=== PATIENT | male | born 1935 | race Caucasian/White ===

== ENCOUNTER 2018-04-30 01:06 | Observation (INO) ==
--- NOTE | 2018-04-30 01:36 | Emergency Department Note ---
Disposition Clinical Impression: Depression Qualifiers: Depression Type: other depression Qualified Code(s): F32.89 - Other specified depressive episodes Disposition: Still a Patient Condition: Good Time of Disposition: 04:50 Psych HPI - General Chief Complaint: ED Psychiatric Symptoms Stated Complaint: depression Time Seen by Provider: 04/30/18 01:25 Source: patient Nursing Notes Reviewed: Yes Vital Signs Reviewed: Yes - History of Present Illness HPI Narrative: Mr. Pink, 82-year-old male, presents from home with daughter bedside for evaluation of depression. Patient has remote history of depression for which she was suicidal at that time. At this time, he denies suicidal or homicidal ideation. He is concerned he is having that direction but is not yet there. He describes his symptoms as several week history of decreased appetite, sadness , poor tasting food. This is been notably worse last 3 days. He lives at home by himself with his daughter next door. He spent the last several days at her house so we can watch him. He otherwise has no concerns or complaints. PMH: Diabetes mellitus type 2, hyperlipidemia, hypothyroid. ROS: Positive: As above Negative: Fever, chills, nausea, vomiting, chest pain, palpitations, abdominal pain, headache, numbness, tingling, weakness - Related Data Home Medications Medication Instructions Recorded Confirmed Aspirin [Lo-Dose Aspirin EC] 81 mg PO DAILY 02/15/17 04/30/18 Levothyroxine [Synthroid] 25 mcg PO DAILY 02/15/17 04/30/18 Metformin HCl [Fortamet] 1,000 mg PO BID 02/15/17 04/30/18 Simvastatin 20 mg PO DAILY 02/15/17 04/30/18 SitaGLIPtin [Januvia] 50 PO DAILY MDD 50 02/15/17 Lisinopril/Hydrochlorothiazide 1 each PO DAILY 04/30/18 04/30/18 [Zestoretic 10-12.5 mg Tablet] Allergies Allergy/AdvReac Type Severity Reaction Status Date / Time Penicillins [PCN] Allergy Rash Verified 02/15/17 10:59 All systems ED: reviewed and negative except as stated. Review of Systems: As Per HPI Past Medical History - Past Medical History Medical history: Reports: cancer, diabetes, hyperlipidemia, hypertension, renal disease, thyroid disease, other Psychiatric history: Reports: depression - Social History Smoking Status: Unknown if ever smoked Smokeless Tobacco Status: No Alcohol use: Reports: none, unknown Drug use: Reports: none Physical Exam Vital Signs Reviewed General: Patient is alert, oriented, and in no acute distress. Head: atraumatic, normocephalic Eye: normal appearance, no scleral icterus, no conjunctival injection ENT: mucous membranes moist, normal external ear exam Neck: normal inspection, trachea midline, full ROM Chest: normal inspection, symmetric chest rise Respiratory: Good respiratory effort. Bilateral breath sounds are clear without wheezing, crackles, or rhonchi. Cardiovascular: Regular rate and rhythm. No clicks, rubs, gallops, or murmors. Normal heart sounds. Abdomen: Bowel sounds present normoactive x-4 quadrants. Abdomen is soft, nondistended, and nontender. No guarding or rebound. No organomegaly noted. Musculoskeletal: Spontaneously moving all extremities. Skin: warm, dry, intact. Neuro: Alert and oriented x4. Sensation light touch intact. Psych: Patient's affect is appropriate for situation. - General Limitations: no limitations General appearance: alert Course Course Narrative: Patient presents with concerns for depression. He is not SI or HI this time. Will attempt medical clearance and mental health services involved. Patient has elevated creatinine which is his baseline normal. He is hyponatremic to 128. Will provide normal saline IV fluid. He has elevated TSH indicating hypothyroidism. He does have a history of hypothyroidism. Workup is otherwise unremarkable. Patient is not medically cleared secondary to hyponatremia. I discussed the patient with the admitting hospitalist, Dr. Farfan, who agrees to accept patient for hyponatremia with psychiatry consult. Vital Signs Temperature 97.5 F L 04/30/18 01:07 Pulse Rate 55 04/30/18 01:07 Respiratory Rate 20 04/30/18 01:07 Blood Pressure 161/93 04/30/18 01:07 O2 Sat by Pulse Oximetry 97 04/30/18 01:07 Temperature 97.8 F 04/30/18 04:45 Pulse Rate 55 04/30/18 01:07 Respiratory Rate 18 04/30/18 04:45 Blood Pressure 158/88 04/30/18 04:45 O2 Sat by Pulse Oximetry 97 04/30/18 01:07 Oxygen Delivery Oxygen Delivery Room Air Psych - Lab Data Result diagrams: 04/30/18 01:46 04/30/18 01:46 Lab Results 04/30/18 04/30/18 04/30/18 Range/Units 01:46 01:46 02:04 WBC 8.9 (4.3-11.1) K/mcL RBC 4.06 L (4.19-5.50) M/mcL Hgb 12.5 L (12.9-16.9) g/dL Hct 36.7 L (37.5-50.1) % MCV 90.4 (83.0-100.0) fL MCH 30.8 (28.0-33.3) pg MCHC 34.1 (31.6-35.5) g/dL RDW 12.8 (11.5-14.5) % Plt Count 147 (140-400) K/mcL MPV 10.2 (9.4-12.4) fL Immature Gran % 1.0 (0-4) % Seg Neutrophils % 64.2 % Lymphocytes % 21.5 % Monocytes % 11.0 % Eosinophils % 1.7 % Basophils % 0.6 % Neutrophils # 5.8 (1.6-8.9) K/mcL Lymphocytes # 1.9 (0.6-4.6) K/mcL Monocytes # 1.0 (0.0-1.3) K/mcL Eosinophils # 0.2 (0.0-0.6) K/mcL Basophils # 0.1 (0.0-0.2) K/mcL Sodium 128 L (136-145) mEq/L Potassium 4.3 (3.5-5.1) mEq/L Chloride 94 L (98-107) mEq/L Carbon Dioxide 24 (23-29) mEq/L BUN 26 H (8-23) mg/dL Creatinine 1.34 H (0.70-1.30) mg/dL Est GFR ( Amer) > 60 (> 60) Est GFR (Non-Af Amer) 51 L (> 60) BUN/Creatinine Ratio 19 (6-26) Glucose 211 H (70-105) mg/dL POC Glucose (70-99) mg/dL Calculated Osmolality 277 L (280-300) Calcium 8.9 (8.6-10.3) mg/dL TSH 5.851 H (0.340-5.600) mcIU/mL Urine Color Yellow (Yellow) Urine Clarity Clear (Clear) Urine pH 6.0 (5.0-8.0) pH Units Ur Specific [place] 1.015 (1.010-1.025) Urine Protein Negative (Neg-Trace) mg/dL Urine Glucose (UA) Normal (Normal) mg/dL Urine Ketones Negative (Negative) mg/dL Urine Blood Negative (Negative) Urine Nitrite Negative (Negative) Urine Bilirubin Negative (Negative) Urine Urobilinogen Normal (Normal) mg/dL Ur Leukocyte Esterase Negative (Negative) Salicylates < 2.5 L (15.0-30.0) mg/dL Urine Opiates Screen (Xpmynz=034) ng/mL Acetaminophen < 10 L (10-20) mcg/mL Ur Barbiturates Screen (Bgrfpr=049) ng/mL Ur Phencyclidine Scrn (Cutoff=25) ng/mL Ur Amphetamines Screen (Yjcbll=6401) ng/mL U Benzodiazepines Scrn (Dtafrm=537) ng/mL Urine Cocaine Screen (Cutoff= 300) ng/mL U Marijuana (THC) Screen (Cutoff = 50) ng/mL Ethyl Alcohol < 10 (Less than 10) mg/dL 04/30/18 04/30/18 Range/Units 02:04 02:56 WBC (4.3-11.1) K/mcL RBC (4.19-5.50) M/mcL Hgb (12.9-16.9) g/dL Hct (37.5-50.1) % MCV (83.0-100.0) fL MCH (28.0-33.3) pg MCHC (31.6-35.5) g/dL RDW (11.5-14.5) % Plt Count (140-400) K/mcL MPV (9.4-12.4) fL Immature Gran % (0-4) % Seg Neutrophils % % Lymphocytes % % Monocytes % % Eosinophils % % Basophils % % Neutrophils # (1.6-8.9) K/mcL Lymphocytes # (0.6-4.6) K/mcL Monocytes # (0.0-1.3) K/mcL Eosinophils # (0.0-0.6) K/mcL Basophils # (0.0-0.2) K/mcL Sodium (136-145) mEq/L Potassium (3.5-5.1) mEq/L Chloride (98-107) mEq/L Carbon Dioxide (23-29) mEq/L BUN (8-23) mg/dL Creatinine (0.70-1.30) mg/dL Est GFR ( Amer) (> 60) Est GFR (Non-Af Amer) (> 60) BUN/Creatinine Ratio (6-26) Glucose (70-105) mg/dL POC Glucose 174 H (70-99) mg/dL Calculated Osmolality (280-300) Calcium (8.6-10.3) mg/dL TSH (0.340-5.600) mcIU/mL Urine Color (Yellow) Urine Clarity (Clear) Urine pH (5.0-8.0) pH Units Ur Specific [place] (1.010-1.025) Urine Protein (Neg-Trace) mg/dL Urine Glucose (UA) (Normal) mg/dL Urine Ketones (Negative) mg/dL Urine Blood (Negative) Urine Nitrite (Negative) Urine Bilirubin (Negative) Urine Urobilinogen (Normal) mg/dL Ur Leukocyte Esterase (Negative) Salicylates (15.0-30.0) mg/dL Urine Opiates Screen Negative (Vzxmmp=001) ng/mL Acetaminophen (10-20) mcg/mL Ur Barbiturates Screen Negative (Xwaegj=136) ng/mL Ur Phencyclidine Scrn Negative (Cutoff=25) ng/mL Ur Amphetamines Screen Negative (Lncksn=3785) ng/mL U Benzodiazepines Scrn Negative (Bgzjqb=559) ng/mL Urine Cocaine Screen Negative (Cutoff= 300) ng/mL U Marijuana (THC) Screen Negative (Cutoff = 50) ng/mL Ethyl Alcohol (Less than 10) mg/dL Psychiatric Medical Clearance - Medical Clearance Checklist Medical History: No Social History Section defined Current Vitals: Last Vital Signs Temp 97.8 F 04/30/18 04:45 Pulse 55 04/30/18 01:07 Resp 18 04/30/18 04:45 BP 158/88 04/30/18 04:45 Pulse Ox 97 04/30/18 01:07 Psychiatric Lab Panel: Drug Levels and Toxicity 04/30/18 04/30/18 01:46 02:04 Urine Opiates Screen Negative Acetaminophen < 10 L Ur Barbiturates Screen Negative Ur Phencyclidine Scrn Negative Ur Amphetamines Screen Negative U Benzodiazepines Scrn Negative Urine Cocaine Screen Negative U Marijuana (THC) Screen Negative Ethyl Alcohol < 10 Abnormal Labs: Abnormal lab results RBC 4.06 M/mcL (4.19-5.50) L 04/30/18 01:46 Hgb 12.5 g/dL (12.9-16.9) L 04/30/18 01:46 Hct 36.7 % (37.5-50.1) L 04/30/18 01:46 Sodium 128 mEq/L (136-145) L 04/30/18 01:46 Chloride 94 mEq/L (98-107) L 04/30/18 01:46 BUN 26 mg/dL (8-23) H 04/30/18 01:46 Creatinine 1.34 mg/dL (0.70-1.30) H 04/30/18 01:46 Est GFR (Non-Af Amer) 51 (> 60) L 04/30/18 01:46 Glucose 211 mg/dL (70-105) H 04/30/18 01:46 POC Glucose 174 mg/dL (70-99) H 04/30/18 02:56 Calculated Osmolality 277 (280-300) L 04/30/18 01:46 TSH 5.851 mcIU/mL (0.340-5.600) H 04/30/18 01:46 Salicylates < 2.5 mg/dL (15.0-30.0) L 04/30/18 01:46 Acetaminophen < 10 mcg/mL (10-20) L 04/30/18 01:46 Statement of Medical Clearance: I have evaluated the patient, reviewed diagnostic information, and certify that the patient's medical condition is sufficiently stable that transfer to the psychiatric unit does not pose a significant risk of deterioration.
[2018-04-30 01:58] LABS: Basophils # 0.1 K/mcL (0.0-0.2); Basophils % 0.6 %; Eosinophils # 0.2 K/mcL (0.0-0.6); Eosinophils % 1.7 %; Hematocrit 36.7 % (37.5-50.1); Hemoglobin 12.5 g/dL (12.9-16.9); Lymphocytes # 1.9 K/mcL (0.6-4.6); Lymphocytes % 21.5 %; Mean Corpuscular HGB Conc 34.1 g/dL (31.6-35.5); Mean Corpuscular Hemoglobin 30.8 pg (28.0-33.3); Mean Corpuscular Volume 90.4 fL (83.0-100.0); Mean Platelet Volume 10.2 fL (9.4-12.4); Neutrophils # 5.8 K/mcL (1.6-8.9); Platelet Count 147 K/mcL (140-400); Red Blood Count 4.06 M/mcL (4.19-5.50); Red Cell Distribution Width 12.8 % (11.5-14.5); Segmented Neutrophils % 64.2 %
[2018-04-30 02:14] LABS: Bilirubin,Urine Negative (Negative); Blood,Urine Negative (Negative); Clarity,Urine Clear (Clear); Color,Urine Yellow (Yellow); Glucose,Urine (UA) Normal (Normal); Ketones,Urine Negative (Negative); Leukocyte Esterase,Urine Negative (Negative); Nitrite,Urine Negative (Negative); Protein,Urine Negative (Neg-Trace); Specific Gravity,Urine 1.015 (1.010-1.025); Urobilinogen,Urine Normal (Normal)
[2018-04-30 02:20] LABS: Acetaminophen < 10 mcg/mL (10-20); BUN/Creatinine Ratio 19 (6-26); Blood Urea Nitrogen 26 mg/dL (8-23); Calcium 8.9 mg/dL (8.6-10.3); Carbon Dioxide 24 mEq/L (23-29); Chloride 94 mEq/L (98-107); Ethanol < 10 mg/dL (Less than 10); Glucose 211 mg/dL (70-105); Osmolality,Calculated 277 (280-300); Potassium 4.3 mEq/L (3.5-5.1); Salicylate < 2.5 mg/dL (15.0-30.0); Sodium 128 mEq/L (136-145); eGFR For African Americans > 60 (> 60); eGFR For Non-African Americans 51 (> 60)
--- NOTE | 2018-04-30 02:21 | Emergency Department Note ---
Disposition Clinical Impression: Depression Qualifiers: Depression Type: other depression Qualified Code(s): F32.89 - Other specified depressive episodes Disposition: Still a Patient Referrals: Tomasz Villalobos MD [Primary Care Provider] - Forms: ED Satisfaction Letter General Adult HPI - General Chief complaint: ED Psychiatric Symptoms Stated complaint: depression Time Seen by Provider: 04/30/18 01:25 Source: patient Limitations: no limitations - History of Present Illness Pain Scale: 0 - Related Data Home Medications Medication Instructions Recorded Confirmed Aspirin [Lo-Dose Aspirin EC] 81 mg PO 02/15/17 Cholecalciferol (D-3) [Vitamin D] 2,000 unit PO DAILY 02/15/17 02/15/17 Glimepiride [Amaryl] 02/15/17 02/15/17 Hydrochlorothiazide 02/15/17 Levothyroxine [Synthroid] 25 mcg PO 02/15/17 Metformin HCl [Fortamet] 02/15/17 Simvastatin 02/15/17 SitaGLIPtin [Januvia] 02/15/17 Previous Rx's Medication Instructions Recorded predniSONE [Prednisone] 40 mg PO DAILY #10 tablet 02/15/17 Allergies Allergy/AdvReac Type Severity Reaction Status Date / Time Penicillins [PCN] Allergy Rash Verified 02/15/17 10:59 Past Medical History - Past Medical History Medical history: Reports: cancer, diabetes, hyperlipidemia, hypertension, renal disease, thyroid disease, other Psychiatric history: Reports: depression - Social History Smoking Status: Unknown if ever smoked Smokeless Tobacco Status: No Alcohol use: Reports: none, unknown Drug use: Reports: none Physical Exam - General Limitations: no limitations General appearance: alert Course - Reevaluation(s) Reevaluation #1: Attestation note I examined this patient and my medical decision-making was reviewed with the emergency medicine resident. I agree with the documented findings, disposition and treatment plan as described except to the extent set forth below. Patient seen with emergency medicine resident Reji Hitchcock, Please see a copy of his note for details of the H&P, ED evaluation, management and disposition. I have independently evaluated the patient and confirmed appropriate portions of the history and physical exam. Briefly: 82-year-old male history of depression comes in for same. He had some Cefzil ideations in the past he feels like he is "going in that direction". No definitive plan at this time. Denies any drugs or alcohol. Is awake and alert physical examination is benign will undergo medical clearance and evaluation by mental health services. Family at bedside. Patient cooperative and resting comfortably. Disposition pending. Time: 02:20 Vital Signs Temperature 97.5 F L 04/30/18 01:07 Pulse Rate 55 04/30/18 01:07 Respiratory Rate 20 04/30/18 01:07 Blood Pressure 161/93 04/30/18 01:07 O2 Sat by Pulse Oximetry 97 04/30/18 01:07 Temperature 97.5 F L 04/30/18 01:07 Pulse Rate 55 04/30/18 01:07 Respiratory Rate 20 04/30/18 01:07 Blood Pressure 161/93 04/30/18 01:07 O2 Sat by Pulse Oximetry 97 04/30/18 01:07 Oxygen Delivery Oxygen Delivery Room Air Medical Decision Making - Lab Data Result diagrams: 04/30/18 01:46 Lab Results 04/30/18 04/30/18 Range/Units 01:46 02:04 WBC 8.9 (4.3-11.1) K/mcL RBC 4.06 L (4.19-5.50) M/mcL Hgb 12.5 L (12.9-16.9) g/dL Hct 36.7 L (37.5-50.1) % MCV 90.4 (83.0-100.0) fL MCH 30.8 (28.0-33.3) pg MCHC 34.1 (31.6-35.5) g/dL RDW 12.8 (11.5-14.5) % Plt Count 147 (140-400) K/mcL MPV 10.2 (9.4-12.4) fL Immature Gran % 1.0 (0-4) % Seg Neutrophils % 64.2 % Lymphocytes % 21.5 % Monocytes % 11.0 % Eosinophils % 1.7 % Basophils % 0.6 % Neutrophils # 5.8 (1.6-8.9) K/mcL Lymphocytes # 1.9 (0.6-4.6) K/mcL Monocytes # 1.0 (0.0-1.3) K/mcL Eosinophils # 0.2 (0.0-0.6) K/mcL Basophils # 0.1 (0.0-0.2) K/mcL Urine Color Yellow (Yellow) Urine Clarity Clear (Clear) Urine pH 6.0 (5.0-8.0) pH Units Ur Specific [place] 1.015 (1.010-1.025) Urine Protein Negative (Neg-Trace) mg/dL Urine Glucose (UA) Normal (Normal) mg/dL Urine Ketones Negative (Negative) mg/dL Urine Blood Negative (Negative) Urine Nitrite Negative (Negative) Urine Bilirubin Negative (Negative) Urine Urobilinogen Normal (Normal) mg/dL Ur Leukocyte Esterase Negative (Negative)
[2018-04-30 02:22] LABS: Amphetamine Screen,Urine Negative ng/mL (Cutoff=1000); Barbiturate Screen,Urine Negative ng/mL (Cutoff=200); Benzodiazepines Screen,Urine Negative ng/mL (Cutoff=200); Cannabinoid Screen,Urine Negative ng/mL (Cutoff = 50); Cocaine Screen,Urine Negative ng/mL (Cutoff= 300); Opiate Screen,Urine Negative ng/mL (Cutoff=300); Phencyclidine Screen,Urine Negative ng/mL (Cutoff=25)
[2018-04-30 02:33] LABS: Thyroid Stimulating Hormone 5.851 mcIU/mL (0.340-5.600)
[2018-04-30] MEDS ORDERED: 0.9 % Sodium Chloride 500 ML IVC ONE (03:29)
[2018-04-30] MEDS ORDERED: *HR* LORazepam 2 MG/ML VIAL IVP ONE (04:04)
[2018-04-30] MEDS ORDERED: Dextrose Gel 15 GM/37.5 ML TUBE PO PRN ×2 (05:43)
[2018-04-30] MEDS ORDERED: Acetaminophen 325 MG TABLET PO PRN (05:43)
[2018-04-30] MEDS ORDERED: Naloxone 0.4 MG/ML INJ IVP PRN (05:43)
[2018-04-30] MEDS ORDERED: *HR* Dextrose 50 % in Water (Syg) 50 ML SYRINGE IVP PRN (05:43)
[2018-04-30] MEDS ORDERED: D5% in Water 1,000 ML IVC PRN (05:43)
--- NOTE | 2018-04-30 06:18 | Internal Med History&Physical ---
Date of Encounter: 04/30/18 Time of Encounter: 05:55 Internal Medicine - H&P: HPI Chief complaint: depression; suicidal thoughts Admitted From: Emergency Dept Plans for Post Hospital Care: Transfer Psych Facility History of present illness: Mr. Pink is a 82 year old male who suffers from long-standing depression presents now with major depression and thoughts of suicide. He was seen in the ER and admitted to hospitalist service with psychiatry consultation. Upon my assessment of the patient, patient admits to feeling depressed and has had thoughts of suicide. He has no plan presently. He worries that he may progress to a point he becomes actively suicidal. He was once hospitalized in psychiatry several years ago for depression with suicidal plan and attempt. Since then, he had been doing well in managing depression non- pharmacologically. However, over the last several months and recent weeks, his depression has worsened to the point where he has had thoughts of suicide. His daughter and son-in-law are present and confirmed above history. He otherwise feels well. Workup in ER revealed patient to have hyponatremia with a sodium 128. He also has an elevated TSH. He denies any excessive fluid intake/water intoxication. He appears euvolemic. He has a history of hypothyroidism and takes Synthroid as directed. I suspect his hyponatremia secondary to his diuretic therapy. Past Med Surg Social Fam HX - Past Medical History Attestation: Yes The following information was validated with the patient. Source: patient, old records reviewed, obtained from family Medical history: cancer, diabetes, hyperlipidemia, hypertension, renal disease, thyroid disease Additional medical history: skin cancer Psychiatric history: depression - Past Surgical History Additional surgical history: skin cancer - Social History Smoking Status: Never smoker Smokeless Tobacco Status: No Alcohol use: none, unknown Drug use: none Current living situation: Home - Independent Activity Level: Independent ambulation Recent Out of Country Travel Within the Last 8 Weeks: No - Family History Mother Living Status: Father Living Status: Internal Medicine - H&P: Meds Aspirin [Lo-Dose Aspirin EC] 81 mg PO DAILY 02/15/17 [History] Levothyroxine [Synthroid] 25 mcg PO DAILY 02/15/17 [History] Metformin HCl [Fortamet] 1,000 mg PO BID 02/15/17 [History] Simvastatin 20 mg PO DAILY 02/15/17 [History] SitaGLIPtin [Januvia] 50 PO DAILY MDD 50 02/15/17 [History] Lisinopril/Hydrochlorothiazide [Zestoretic 10-12.5 mg Tablet] 1 each PO DAILY [History] 3 Allergy/AdvReac Type Severity Reaction Status Date / Time Penicillins [PCN] Allergy Rash Verified 02/15/17 10:59 - Constitutional Constitutional: anorexia, fatigue, weight loss, no chills, no fever(s), no night sweats - EENT Eyes: no change in vision Nose, mouth and throat: no nasal congestion, no sore throat - Cardiovascular Cardiovascular ROS IM: no chest pain, no dyspnea - Respiratory Respiratory: no cough, no hemoptysis - Gastrointestinal Gastrointestinal: no abdominal pain, no diarrhea, no vomiting - Genitourinary Genitourinary ROS male: no dysuria, no flank pain, no hematuria - Musculoskeletal Musculoskeletal ROS IM: no arthralgias, no back pain - Integumentary Integumentary IM: no rash, no jaundice - Neurological Neurological ROS: no dizziness, no focal weakness, no frequent falls, no headache(s) - Psychiatric Psychiatric: anxiety, depression, hopelessness, suicidal ideation - Endocrine Endocrine IM: no polydipsia, no polyuria - Allergic/Immunologic Allergic/Immunologic: no GI upset with certain foods - Constitutional Vitals: Temp Pulse Resp BP Pulse Ox 98.0 F 55 15 134/85 96 04/30/18 05:00 04/30/18 05:00 04/30/18 05:00 04/30/18 05:00 04/30/18 05:51 General appearance: Present: cooperative, A&O X 3, pleasant Exam: flat affect - Head Head exam: Present: atraumatic, normal inspection - Eye Eye exam: Present: EOMI, PERRL. Absent: scleral icterus - ENT ENT exam: Present: mucous membranes dry, normal exam - Neck Neck exam general surgery: Present: full ROM, supple. Absent: tenderness, nuchal rigidity, thyromegaly - Respiratory Respiratory exam: Present: CTAB. Absent: rales, rhonchi, wheezes - Cardiovascular Cardiovascular exam: Present: RRR, +S1, +S2. Absent: diastolic murmur, systolic murmur - GI/Abdominal GI/Abdominal exam: Present: normal bowel sounds, soft. Absent: hepatomegaly, splenomegaly, tenderness - Extremities Exam Extremities exam: Present: full ROM, normal capillary refill. Absent: calf tenderness - Back Exam Back exam: Absent: CVA tenderness (L), CVA tenderness (R) - Neurological Exam Neurological exam: Present: alert, CN II-XII intact, oriented X3, no focal deficits - Psychiatric Psychiatric exam: Present: depressed, flat affect, suicidal ideation - Skin Skin exam: Present: dry, warm Internal Med - H&P Results - Labs CBC & Chem 7: 04/30/18 01:46 04/30/18 01:46 - Assessment and plan (1) Suicidal ideation Current Visit: Yes Status: Acute Assessment and plan: 1. Suicide precautions. 2. 24 hour sitter. 3. Psychiatry consulted. (2) Depression Current Visit: Yes Status: Acute Assessment and plan: 1. Psychiatry consulted and will await medication recommendations. 2. Possible inpatient care per psychiatry. 3. Will order Free T4 . Qualifiers: Depression Type: other depression Qualified Code(s): F32.89 - Other specified depressive episodes (3) Hyponatremia Current Visit: Yes Status: Acute Assessment and plan: 1. Likely due to HCTZ. 2. Hold diuretics. 3. Monitor serum sodium levels. (4) Type 2 diabetes mellitus Current Visit: Yes Status: Chronic Assessment and plan: 1. Hold oral meds. 2. Monitor glucose and use SSI. Qualifiers: Diabetes mellitus keno terminal operator insulin use: without keno terminal operator use Diabetes mellitus complication status: without complication Qualified Code(s): E11.9 - Type 2 diabetes mellitus without complications (5) DVT prophylaxis Current Visit: Yes Status: Acute Assessment and plan: 1. Heparin SQ.
[2018-04-30] MEDS: Levothyroxine 25 MCG TABLET PO SCH (06:41)
[2018-04-30] MEDS: *HR* Heparin 5,000 UNIT/ML VIAL SQ SCH ×2 (06:43→17:55)
[2018-04-30] MEDS: Aspirin Enteric Coated 81 MG Tablet PO SCH (08:09)
[2018-04-30] MEDS: Insulin LISPRO 300 UNITS/3 ML VIAL SQ SCH ×3 (08:11→17:55)
[2018-04-30 09:46] LABS: Alanine Aminotransferase 11 Units/L (7-52); Albumin 4.2 g/dL (3.5-5.7); Albumin/Globulin Ratio 1.8 (1.1-2.2); Alkaline Phosphatase 38 Units/L (34-104); Aspartate Amino Transferase 14 Units/L (13-39); BUN/Creatinine Ratio 19 (6-26); Bilirubin,Total 0.5 mg/dL (0.3-1.0); Blood Urea Nitrogen 22 mg/dL (8-23); Calcium 8.9 mg/dL (8.6-10.3); Carbon Dioxide 28 mEq/L (23-29); Chloride 99 mEq/L (98-107); Globulin 2.3 g/dL (2.4-3.5); Glucose 141 mg/dL (70-105); Magnesium 1.2 mg/dL (1.6-2.6); Osmolality,Calculated 282 (280-300); Potassium 4.6 mEq/L (3.5-5.1); Sodium 133 mEq/L (136-145); Total Protein 6.5 g/dL (6.4-8.9); eGFR For African Americans > 60 (> 60); eGFR For Non-African Americans > 60 (> 60)
--- NOTE | 2018-04-30 10:11 | Internal Med Progress Note ---
Date of Encounter: 04/30/18 Time of Encounter: 10:09 - Assessment and plan (1) Major depressive disorder, recurrent episode Current Visit: Yes Status: Acute Assessment and plan: History of recurrent major depressive disorder Prior inpatient psychiatric hospitalization in 1990 due to exacerbation of depression Denied any previous suicide attempts but admits to prior suicidal ideation, denies any auditory/visual hallucinations Patient lives at home alone admitting to recent exacerbation of depression Reports that he came in seeking help due to concerns that he may have recurrence of suicidal ideation Denies any suicidal/homicidal ideation now and reporting that he feels better since starting antidepressants Psychiatry seeing in consultation, appreciate recommendations Patient in agreement with current treatment plan -Sertraline -Trazodone -Continue sitter Qualifiers: Major depression episode severity: moderate Qualified Code(s): F33.1 - Major depressive disorder, recurrent, moderate (2) Suicidal ideation Current Visit: Yes Status: Acute Assessment and plan: See above (3) Hyponatremia Current Visit: Yes Status: Acute Assessment and plan: Hyponatremia, sodium 133 Likely due to HCTZ use, hold Asymptomatic, monitor serum sodium levels Appears to be euvolemic (4) Type 2 diabetes mellitus Current Visit: Yes Status: Chronic Assessment and plan: H/o DM II Blood glucose stable today Continue current insulin regimen Qualifiers: Diabetes mellitus [facility] insulin use: without adjunct faculty for medical terminology use Diabetes mellitus complication status: without complication Qualified Code(s): E11.9 - Type 2 diabetes mellitus without complications (5) DVT prophylaxis Current Visit: Yes Status: Acute Assessment and plan: Continue SQ heparin - Time Spent With Patient Total time spent is greater than 50% in coordination of care (as documented) at patient's floor/unit and/or counseling patient: 25 - 35 minutes - Subjective Interval history: No acute changes overnight. Patient reports that he is continuing to feel depressed. He denies any suicidal/homicidal ideation. He reports that he does not have a plan for suicide, only that he is seeking care as he realizes he is depressed and does not want to feel suicidal at all. Additionally, denying any auditory/visual hallucinations. Denies any drug use/abuse. Patient is in agreement to see psychiatry for further evaluation. - Constitutional Vitals: Temp Pulse Resp BP Pulse Ox 97.6 F 50 15 120/76 95 04/30/18 06:51 04/30/18 06:51 04/30/18 06:51 04/30/18 06:51 04/30/18 06:51 General appearance: Present: cooperative, A&O X 3, pleasant - Head Head exam: Present: atraumatic, normocephalic - Eye Eye exam: Present: EOMI, PERRL, conjuntiva pink, sclera anicteric Pupils: Present: PERRL - Neck Neck exam general surgery: Present: supple, trachea midline. Absent: lymphadenopathy - Respiratory Respiratory exam: Present: CTAB. Absent: accessory muscle use, rales, rhonchi, wheezes - Cardiovascular Cardiovascular exam: Present: RRR, +S1, +S2. Absent: diastolic murmur, gallop, rubs, systolic murmur - GI/Abdominal GI/Abdominal exam: Present: normal bowel sounds, soft, no peritoneal signs. Absent: distended, tenderness - Extremities Exam Extremities exam: Present: warm, radial pulses palpable and symmetrical. Absent : calf tenderness, cyanotic, pedal edema - Neurological Exam Neurological exam: Present: CN II-XII intact, oriented X3, no focal deficits. Absent: pronater drift, facial droop, speech deficit - Psychiatric Psychiatric exam: Present: depressed, flat affect. Absent: agitated, anxious, homicidal ideation, manic, normal affect, normal mood, suicidal ideation - Skin Skin exam: Present: dry, intact Internal Medicine: Result - Labs CBC & Chem 7: 04/30/18 01:46 04/30/18 08:52 Labs: [facility] 04/30/18 08:52 Sodium 133 L Potassium 4.6 Chloride 99 Carbon Dioxide 28 BUN 22 Creatinine 1.14 Glucose 141 H Calcium 8.9 Liver Function 04/30/18 Range/Units 08:52 Total Bilirubin 0.5 (0.3-1.0) mg/dL AST 14 (13-39) Units/L ALT 11 (7-52) Units/L Alkaline Phosphatase 38 (34-104) Units/L Albumin 4.2 (3.5-5.7) g/dL Consult Discharge Plan - Plan Referrals: Tomasz Villalobos MD [Primary Care Provider] -
[2018-04-30] MEDS ORDERED: traZODone 50 MG TABLET PO PRN (13:48)
--- NOTE | 2018-04-30 13:57 | Consult Note ---
Date of Encounter: 04/30/18 Time of Encounter: 13:00 Assessment & Recommendation (1) Major depressive disorder, recurrent episode Current visit: Yes Status: Acute Qualifiers: Major depression episode severity: moderate Qualified Code(s): F33.1 - Major depressive disorder, recurrent, moderate (2) Suicidal ideation Current visit: Yes Status: Acute History of Present Illness Patient: new to practice Requesting Physician: Praful Farfan MD History of present illness: Pt is a 82 yo ,, male, x1, x1, girlfriend of 30 years passed recently, with 3 children, who presents for depression. Pt noted he currently lives in [facility], alone, however his daughter lives behind him. Pt noted recent exacerbation of depression. Pt noted I came in because I needed some help I feel much better now. I feel safe and comfortable on the unit. Pt denied any side effects to current medications. Pt was in agreement with current treatment plan. Pt noted that he is doing alright today. Pt noted he slept 6 hours broken night. Pt noted his appetite is better. Pt rated his depression a 3, on a scale of zero to ten with ten being the worst and zero being none. Pt rate his anxiety a 4, on the same scale. Pt denied any auditory or visual hallucinations. Pt denied any current thoughts to harm himself or anyone else. Pt noted that his highest level of education is [employer]. Pt noted he is currently retired and receives SSDI. Pt noted one any inpt psychiatric hospitalizations in 1990 with exacerbation of depression upon onset of Diabetes M, type 2. Pt denied any previous suicide attempts. Pt denied any family hx of suicides. PT denied any family mental health hx. Pt denied any hx of TBIs, Seizures, HEP C or HIV. MSE: Alert and Oriented x3 Appearance: appropriately groomed dressed in civilian attire Behavior: Polite, friendly, courteous Speech: fluent, normal tone, normal rate Mood: better but I am depression Affect: mood congruent Thought content: no HI noted, no SI noted, no delusions noted Psychosis: none noted, currently does not appear to be responding to internal stimuli. Thought Process: linear logical, goal directed Judgment: fair. Insight: fair. Assessment/Plan 1.Interval hx 2.Continue current medications 3.Review current labs 4.Pt had an opportunity to ask questions and discuss current treatment plan. 5.Supportive therapy was provided 6.Pt encouraged to consider group or individual therapy 7.Pt was in agreement with treatment plan. 8.Pt was educated on the risks benefits and side effects of current medications. 9. Continue sitter 10. Start sertraline 50 mg PO QAM for mood 11. Start trazodone 50 mg PO QHS PRN for insomina. 12. Will reassess pt tomorrow for possible D/C home to daughters CC: Praful Farfan MD Past Med Surg Social Fam HX - Past Medical History Medical history: cancer, diabetes, hyperlipidemia, hypertension, renal disease, thyroid disease - Past Psychiatric History Psychiatric history: Reports: depression, previous psychiatric hospitalization Family psychiatric history: No Family History of Suicide: None - Social History Smoking Status: Never smoker Smokeless Tobacco Status: No Alcohol use: none, unknown Drug use: none - Family History Mother Living Status: Father Living Status: Medications & Allergies Aspirin [Lo-Dose Aspirin EC] 81 mg PO DAILY 02/15/17 [History] Levothyroxine [Synthroid] 25 mcg PO DAILY 02/15/17 [History] Glimepiride [Amaryl] 1 - 2 mg PO DAILY 04/30/18 [History] Lisinopril/Hydrochlorothiazide [Zestoretic 20-25 mg Tablet] 1 tab PO DAILY 04/30 [History] Metformin HCl [Metformin HCl ER] 1,000 mg PO BID 04/30/18 [History] Simvastatin [Zocor] 20 mg PO HS 04/30/18 [History] 3 Allergy/AdvReac Type Severity Reaction Status Date / Time Penicillins [PCN] Allergy Rash Verified 02/15/17 10:59 Review of Systems Constitutional: Denies: fever, chills, weakness, weight change Eyes: Denies: eye pain, vision change Ears, Nose, Throat: Denies: ear pain, throat pain, dental pain, hearing loss, congestion Cardiovascular: Denies: chest pain, palpitations, dyspnea on exertion Respiratory: Denies: cough, dyspnea, wheezes Gastrointestinal: Denies: abdominal pain, nausea, vomiting, diarrhea, constipation Genitourinary male: Denies: urgency, dysuria, frequency, genital lesions Musculoskeletal: Denies: joint swelling, joint pain Integumentary: Denies: rash, lesions, pruritus Neurological: Denies: headache, weakness, numbness, memory loss Psychiatric: Reports: depression, abnormal sleep pattern, suicidal ideation, anhedonia Endocrine: Denies: fatigue, heat or cold intolerance Hematologic/Lymphatic: Denies: easy bruising, lymphadenopathy Allergic/Immunologic: Denies: urticaria, itchy eyes Psychiatry Exam - Constitutional Vitals: Temp Pulse Resp BP Pulse Ox 97.7 F 53 16 122/76 95 04/30/18 11:15 04/30/18 11:15 04/30/18 11:15 04/30/18 11:15 04/30/18 11:15 General appearance: age & developmentally appropriate, well-groomed, well- nourished - Musculoskeletal Gait: normal Station: relaxed Strength & Tone: normal for patient - Psychiatric Patient Orientation: Yes Person, Yes Time, Yes Place Level of alertness: Alert Behavior: calm, cooperative Psychomotor activity: Normal Eye Contact: Maintains Eye Contact Mood Description: Euthymic/stable, Depressed Affect description: congruent with mood, full range Speech Volume: Normal Speech pattern: normal rate, normal rhythm, normal tone, fluent, spontaneous Language & Vocabulary: consistent with education Thought Process: Linear, Goal Oriented Thought Content: No Suicidal ideation, No Homicidal ideation, No Overt delusions Perceptual Disturbances: No Auditory hallucinations, No Visual hallucinations Attention Span Ability: Capable of Focused Attention Memory Description: Grossly Intact Patient Reliability: Reliable Historian Fund of knowledge: Yes abstraction ability, Yes aware of current events Intelligence Estimate: Average Judgment: Limited Insight: Partial Results - Labs Labs: Laboratory Last Values WBC 8.9 K/mcL (4.3-11.1) 04/30/18 01:46 RBC 4.06 M/mcL (4.19-5.50) L 04/30/18 01:46 Hgb 12.5 g/dL (12.9-16.9) L 04/30/18 01:46 Hct 36.7 % (37.5-50.1) L 04/30/18 01:46 MCV 90.4 fL (83.0-100.0) 04/30/18 01:46 MCH 30.8 pg (28.0-33.3) 04/30/18 01:46 MCHC 34.1 g/dL (31.6-35.5) 04/30/18 01:46 RDW 12.8 % (11.5-14.5) 04/30/18 01:46 Plt Count 147 K/mcL (140-400) 04/30/18 01:46 MPV 10.2 fL (9.4-12.4) 04/30/18 01:46 Immature Gran % 1.0 % (0-4) 04/30/18 01:46 Seg Neutrophils % 64.2 % 04/30/18 01:46 Lymphocytes % 21.5 % 04/30/18 01:46 Monocytes % 11.0 % 04/30/18 01:46 Eosinophils % 1.7 % 04/30/18 01:46 Basophils % 0.6 % 04/30/18 01:46 Neutrophils # 5.8 K/mcL (1.6-8.9) 04/30/18 01:46 Lymphocytes # 1.9 K/mcL (0.6-4.6) 04/30/18 01:46 Monocytes # 1.0 K/mcL (0.0-1.3) 04/30/18 01:46 Eosinophils # 0.2 K/mcL (0.0-0.6) 04/30/18 01:46 Basophils # 0.1 K/mcL (0.0-0.2) 04/30/18 01:46 Sodium 133 mEq/L (136-145) L 04/30/18 08:52 Potassium 4.6 mEq/L (3.5-5.1) 04/30/18 08:52 Chloride 99 mEq/L (98-107) 04/30/18 08:52 Carbon Dioxide 28 mEq/L (23-29) 04/30/18 08:52 BUN 22 mg/dL (8-23) 04/30/18 08:52 Creatinine 1.14 mg/dL (0.70-1.30) 04/30/18 08:52 Est GFR ( Amer) > 60 (> 60) 04/30/18 08:52 Est GFR (Non-Af Amer) > 60 (> 60) 04/30/18 08:52 BUN/Creatinine Ratio 19 (6-26) 04/30/18 08:52 Glucose 141 mg/dL (70-105) H 04/30/18 08:52 POC Glucose 174 mg/dL (70-99) H 04/30/18 02:56 Calculated Osmolality 282 (280-300) 04/30/18 08:52 Calcium 8.9 mg/dL (8.6-10.3) 04/30/18 08:52 Magnesium 1.2 mg/dL (1.6-2.6) L 04/30/18 08:52 Total Bilirubin 0.5 mg/dL (0.3-1.0) 04/30/18 08:52 AST 14 Units/L (13-39) 04/30/18 08:52 ALT 11 Units/L (7-52) 04/30/18 08:52 Alkaline Phosphatase 38 Units/L (34-104) 04/30/18 08:52 Serum Total Protein 6.5 g/dL (6.4-8.9) 04/30/18 08:52 Albumin 4.2 g/dL (3.5-5.7) 04/30/18 08:52 Globulin 2.3 g/dL (2.4-3.5) L 04/30/18 08:52 Albumin/Globulin Ratio 1.8 (1.1-2.2) 04/30/18 08:52 TSH 5.851 mcIU/mL (0.340-5.600) H 04/30/18 01:46 Free T4 1.07 ng/dl (0.70-2.00) 04/30/18 01:46 Urine Color Yellow (Yellow) 04/30/18 02:04 Urine Clarity Clear (Clear) 04/30/18 02:04 Urine pH 6.0 pH Units (5.0-8.0) 04/30/18 02:04 Ur Specific [place] 1.015 (1.010-1.025) 04/30/18 02:04 Urine Protein Negative mg/dL (Neg-Trace) 04/30/18 02:04 Urine Glucose (UA) Normal mg/dL (Normal) 04/30/18 02:04 Urine Ketones Negative mg/dL (Negative) 04/30/18 02:04 Urine Blood Negative (Negative) 04/30/18 02:04 Urine Nitrite Negative (Negative) 04/30/18 02:04 Urine Bilirubin Negative (Negative) 04/30/18 02:04 Urine Urobilinogen Normal mg/dL (Normal) 04/30/18 02:04 Ur Leukocyte Esterase Negative (Negative) 04/30/18 02:04 Salicylates < 2.5 mg/dL (15.0-30.0) L 04/30/18 01:46 Urine Opiates Screen Negative ng/mL (Jiplie=307) 04/30/18 02:04 Acetaminophen < 10 mcg/mL (10-20) L 04/30/18 01:46 Ur Barbiturates Screen Negative ng/mL (Aknloi=896) 04/30/18 02:04 Ur Phencyclidine Scrn Negative ng/mL (Cutoff=25) 04/30/18 02:04 Ur Amphetamines Screen Negative ng/mL (Irpqnx=1675) 04/30/18 02:04 U Benzodiazepines Scrn Negative ng/mL (Pvhskg=377) 04/30/18 02:04 Urine Cocaine Screen Negative ng/mL (Cutoff= 300) 04/30/18 02:04 U Marijuana (THC) Screen Negative ng/mL (Cutoff = 50) 04/30/18 02:04 Ethyl Alcohol < 10 mg/dL (Less than 10) 04/30/18 01:46 Consult Discharge Plan - Plan Referrals: Tomasz Villalobos MD [Primary Care Provider] -
[2018-05-01] MEDS: *HR* Heparin 5,000 UNIT/ML VIAL SQ SCH ×2 (05:52→17:02)
[2018-05-01] MEDS: Levothyroxine 25 MCG TABLET PO SCH (05:52)
[2018-05-01] MEDS: Insulin LISPRO 300 UNITS/3 ML VIAL SQ SCH ×3 (08:03→17:02)
[2018-05-01] MEDS: Aspirin Enteric Coated 81 MG Tablet PO SCH (08:25)
--- NOTE | 2018-05-01 09:18 | Discharge Summary ---
- NOTES TO OUTPATIENT PROVIDER Notes to Outpatient Provider: Admitted with concerns for depression. H/o MDD with recurrence. Has been on antidepressants in the past. Restarted this stay. To be discharged on Sertraline and Trazodone. Instructed to f/u with PCP in 1-week of D/C Date of Encounter: 05/01/18 Time of Encounter: 09:16 - Discharge Diagnosis (1) Major depressive disorder, recurrent episode Priority: Primary Status: Acute Assessment and Plan: History of recurrent major depressive disorder Prior inpatient psychiatric hospitalization in 1990 due to exacerbation of depression Denied any previous suicide attempts but admits to prior suicidal ideation, denies any auditory/visual hallucinations Patient lives at home alone admitting to recent exacerbation of depression Reports that he came in seeking help due to concerns that he may have recurrence of suicidal ideation Denies any suicidal/homicidal ideation today 07/01/18 reporting that he feels better since resuming antidepressants Psychiatry seeing in consultation, appreciate recommendations-defer to psychology regarding discharge Patient in agreement with current treatment plan -Continue Sertraline -Continue Trazodone Qualifiers: Major depression episode severity: moderate Qualified Code(s): F33.1 - Major depressive disorder, recurrent, moderate (2) Suicidal ideation Priority: Secondary Status: Acute Assessment and Plan: See above (3) Hyponatremia Priority: Secondary Status: Acute Assessment and Plan: Hyponatremia, sodium 133 Likely due to HCTZ use, hold wile inpatient Asymptomatic Appears to be euvolemic (4) Type 2 diabetes mellitus Priority: Secondary Status: Chronic Assessment and Plan: H/o DM II Blood glucose stable today Continue current insulin regimen Qualifiers: Diabetes mellitus group home insulin use: without superintendent [employer] use Diabetes mellitus complication status: without complication Qualified Code(s): E11.9 - Type 2 diabetes mellitus without complications Hospital course: Mr. Pink is a 82 year old male Was admitted with concerns for depression. Patient has prior history of major depressive disorder with prior suicidal ideation. The patient wanted to come in to the hospital for further evaluation as he was worried he would develop suicidal ideation without treatment with depression medications. He reports that he has been on antidepressants in the past and has tolerated them well. Antidepressants restarted, evaluated by psychiatry. Does not appear to be harm to self or others. Reports that he is feeling better with a good night sleep and with resuming antidepressant medication. Patient denies any plan for self- harm. Plan is to discharge and daughters care for the next couple of weeks per the patient's request. Instructed to follow-up with PCP within 1 week of discharge. Also, informed to return to the ED showed depression worsen and he experiences suicidal ideation. Discharge discussed with: patient, nurse - Time Spent with Patient Total time spent providing and/or coordinating discharge services: Less than 30 minutes - Discharge Medications Prescriptions: Sertraline [Zoloft] 50 mg PO DAILY 30 Days #30 tablet traZODone [TraZODone] 50 mg PO HS PRN 30 Days #30 tablet PRN Reason: Insomnia Home Medications: Aspirin [Lo-Dose Aspirin EC] 81 mg PO DAILY 02/15/17 [History] Levothyroxine [Synthroid] 25 mcg PO DAILY 02/15/17 [History] Glimepiride [Amaryl] 1 - 2 mg PO DAILY 04/30/18 [History] Lisinopril/Hydrochlorothiazide [Zestoretic 20-25 mg Tablet] 1 tab PO DAILY 04/30 [History] Metformin HCl [Metformin HCl ER] 1,000 mg PO BID 04/30/18 [History] Simvastatin [Zocor] 20 mg PO HS 04/30/18 [History] Sertraline [Zoloft] 50 mg PO DAILY 30 Days #30 tablet 05/01/18 [Rx] traZODone [TraZODone] 50 mg PO HS PRN 30 Days #30 tablet 05/01/18 [Rx] Allergies/Adverse Reactions: 3 Allergy/AdvReac Type Severity Reaction Status Date / Time Penicillins [PCN] Allergy Rash Verified 02/15/17 10:59 Date of admission: 04/30/18 04:06 Primary care physician: Tomasz Villalobos MD Consults: 04/30/18 05:45 Consult to Physician [CONS] Routine Consulting Provider: Naren Vega Reason for Consult: major depression; suicidal thoughts Time Notified: 05:46 Call Completed: Yes Discharging clinician: Adalid Govea Anticipated date of discharge: 05/01/18 - Constitutional Vitals: Temp Pulse Resp BP Pulse Ox 97.9 F 69 18 129/76 96 05/01/18 06:19 05/01/18 06:19 05/01/18 06:19 05/01/18 06:19 05/01/18 06:19 General appearance: Present: cooperative, A&O X 3, pleasant - Head Head exam: Present: atraumatic, normocephalic - Eye Eye exam: Present: EOMI, PERRL, conjuntiva pink, sclera anicteric Pupils: Present: PERRL - Neck Neck exam general surgery: Present: supple, trachea midline. Absent: lymphadenopathy - Respiratory Respiratory exam: Present: CTAB. Absent: accessory muscle use, rales, rhonchi, wheezes - Cardiovascular Cardiovascular exam: Present: RRR, +S1, +S2. Absent: diastolic murmur, gallop, rubs, systolic murmur - GI/Abdominal GI/Abdominal exam: Present: normal bowel sounds, soft, no peritoneal signs. Absent: distended, tenderness - Extremities Exam Extremities exam: Present: warm, radial pulses palpable and symmetrical. Absent : calf tenderness, cyanotic, pedal edema - Neurological Exam Neurological exam: Present: CN II-XII intact, oriented X3, no focal deficits. Absent: pronater drift, facial droop, speech deficit - Skin Skin exam: Present: dry, intact - Patient Status Disposition: Home, Self-Care Condition: Good Functional capacity at discharge: independent ambulation Overall status at discharge: patient is progressing back to baseline - Discharge Instructions Instructions: Depression (DC) Follow Up With: Tomasz Villalobos MD [Primary Care Provider] - 05/08/18 2:00 pm - Diet and Activity Activity: resume usual activities as tolerated Diet: advance to your usual diet
[2018-05-01] MEDS ORDERED: hydrOXYzine pamoate 25 MG CAPSULE PO PRN (18:15)
[2018-05-01] MEDS ORDERED: traZODone 50 MG TABLET PO PRN (18:16)
--- NOTE | 2018-05-01 18:22 | Consult Note ---
Date of Encounter: 05/01/18 Time of Encounter: 18:00 Assessment & Recommendation (1) Major depressive disorder, recurrent episode Current visit: Yes Status: Acute Qualifiers: Major depression episode severity: moderate Qualified Code(s): F33.1 - Major depressive disorder, recurrent, moderate (2) Suicidal ideation Current visit: Yes Status: Acute History of Present Illness Patient: new to practice Requesting Physician: Praful Farfan MD History of present illness: Pt is a 82 yo ,, male, x1, x1, girlfriend of 30 years passed recently, with 3 children, who presents for depression. Pt noted he currently lives in [facility], alone, however his daughter lives behind him. Pt noted recent exacerbation of depression. Pt noted I feel safe and comfortable on the unit. Pt denied any side effects to current medications. Pt was in agreement with current treatment plan. Pt noted that he is doing pretty good today doc. Pt noted he slept 8 hours really good last night. Pt noted his appetite is good. Pt rated his depression a 1, on a scale of zero to ten with ten being the worst and zero being none. Pt rate his anxiety a 1, on the same scale. Pt denied any auditory or visual hallucinations. Pt denied any current thoughts to harm himself or anyone else. Pt denies any suicidality. Pt denied any hx of TBIs, Seizures, HEP C or HIV. MSE: Alert and Oriented x3 Appearance: appropriately groomed dressed in civilian attire Behavior: Polite, friendly, courteous Speech: fluent, normal tone, normal rate Mood: better but I am depression Affect: mood congruent Thought content: no HI noted, no SI noted, no delusions noted Psychosis: none noted, currently does not appear to be responding to internal stimuli. Thought Process: linear logical, goal directed Judgment: fair. Insight: fair. Assessment/Plan 1.Interval hx 2.Continue current medications 3.Review current labs 4.Pt had an opportunity to ask questions and discuss current treatment plan. 5.Supportive therapy was provided 6.Pt encouraged to consider group or individual therapy 7.Pt was in agreement with treatment plan. 8.Pt was educated on the risks benefits and side effects of current medications. 9. Continue sitter 10. Start visteril 25 mg PO TID for Anxiety PRN 11. Reduce trazodone to 25 mg PO QHS PRN for insomina. 12. Pt clear to D/C pt to [facility] 13. Coordinate out pt mental health follow up upon discharge CC: Praful Farfan MD Past Med Surg Social Fam HX - Past Medical History Medical history: cancer, diabetes, hyperlipidemia, hypertension, renal disease, thyroid disease - Social History Smoking Status: Never smoker Smokeless Tobacco Status: No Alcohol use: none, unknown Drug use: none - Family History Mother Living Status: Father Living Status: Medications & Allergies Aspirin [Lo-Dose Aspirin EC] 81 mg PO DAILY 02/15/17 [History] Levothyroxine [Synthroid] 25 mcg PO DAILY 02/15/17 [History] Glimepiride [Amaryl] 1 - 2 mg PO DAILY 04/30/18 [History] Lisinopril/Hydrochlorothiazide [Zestoretic 20-25 mg Tablet] 1 tab PO DAILY 04/30 [History] Metformin HCl [Metformin HCl ER] 1,000 mg PO BID 04/30/18 [History] Simvastatin [Zocor] 20 mg PO HS 04/30/18 [History] Sertraline [Zoloft] 50 mg PO DAILY 30 Days #30 tablet 05/01/18 [Rx] traZODone [TraZODone] 50 mg PO HS PRN 30 Days #30 tablet 05/01/18 [Rx] 3 Allergy/AdvReac Type Severity Reaction Status Date / Time Penicillins [PCN] Allergy Rash Verified 02/15/17 10:59 Review of Systems Constitutional: Denies: fever, chills, weakness, weight change Eyes: Denies: eye pain, vision change Ears, Nose, Throat: Denies: ear pain, throat pain, dental pain, hearing loss, congestion Cardiovascular: Denies: chest pain, palpitations, dyspnea on exertion Respiratory: Denies: cough, dyspnea, wheezes Gastrointestinal: Denies: abdominal pain, nausea, vomiting, diarrhea, constipation Genitourinary male: Denies: urgency, dysuria, frequency, genital lesions Musculoskeletal: Denies: joint swelling, joint pain Integumentary: Denies: rash, lesions, pruritus Neurological: Denies: headache, weakness, numbness, memory loss Psychiatric: Reports: depression, abnormal sleep pattern, suicidal ideation, anhedonia Endocrine: Denies: fatigue, heat or cold intolerance Hematologic/Lymphatic: Denies: easy bruising, lymphadenopathy Allergic/Immunologic: Denies: urticaria, itchy eyes Psychiatry Exam - Constitutional Vitals: Temp Pulse Resp BP Pulse Ox 98.1 F 60 17 135/82 93 05/01/18 15:49 05/01/18 15:49 05/01/18 15:49 05/01/18 15:49 05/01/18 15:49 General appearance: age & developmentally appropriate, well-groomed, well- nourished - Musculoskeletal Gait: normal Station: relaxed Strength & Tone: normal for patient - Psychiatric Patient Orientation: Yes Person, Yes Time, Yes Place Level of alertness: Alert Behavior: calm, cooperative Psychomotor activity: Normal Eye Contact: Maintains Eye Contact Mood Description: Euthymic/stable Affect description: congruent with mood, full range Speech Volume: Normal Speech pattern: normal rate, normal rhythm, normal tone, fluent, spontaneous Language & Vocabulary: consistent with education Thought Process: Linear, Goal Oriented Thought Content: No Suicidal ideation, No Homicidal ideation, No Overt delusions Perceptual Disturbances: No Auditory hallucinations, No Visual hallucinations Attention Span Ability: Capable of Focused Attention Memory Description: Grossly Intact Patient Reliability: Reliable Historian Fund of knowledge: Yes abstraction ability, Yes aware of current events Intelligence Estimate: Average Judgment: Limited Insight: Partial Results - Labs Labs: Laboratory Last Values WBC 8.9 K/mcL (4.3-11.1) 04/30/18 01:46 RBC 4.06 M/mcL (4.19-5.50) L 04/30/18 01:46 Hgb 12.5 g/dL (12.9-16.9) L 04/30/18 01:46 Hct 36.7 % (37.5-50.1) L 04/30/18 01:46 MCV 90.4 fL (83.0-100.0) 04/30/18 01:46 MCH 30.8 pg (28.0-33.3) 04/30/18 01:46 MCHC 34.1 g/dL (31.6-35.5) 04/30/18 01:46 RDW 12.8 % (11.5-14.5) 04/30/18 01:46 Plt Count 147 K/mcL (140-400) 04/30/18 01:46 MPV 10.2 fL (9.4-12.4) 04/30/18 01:46 Immature Gran % 1.0 % (0-4) 04/30/18 01:46 Seg Neutrophils % 64.2 % 04/30/18 01:46 Lymphocytes % 21.5 % 04/30/18 01:46 Monocytes % 11.0 % 04/30/18 01:46 Eosinophils % 1.7 % 04/30/18 01:46 Basophils % 0.6 % 04/30/18 01:46 Neutrophils # 5.8 K/mcL (1.6-8.9) 04/30/18 01:46 Lymphocytes # 1.9 K/mcL (0.6-4.6) 04/30/18 01:46 Monocytes # 1.0 K/mcL (0.0-1.3) 04/30/18 01:46 Eosinophils # 0.2 K/mcL (0.0-0.6) 04/30/18 01:46 Basophils # 0.1 K/mcL (0.0-0.2) 04/30/18 01:46 Sodium 133 mEq/L (136-145) L 04/30/18 08:52 Potassium 4.6 mEq/L (3.5-5.1) 04/30/18 08:52 Chloride 99 mEq/L (98-107) 04/30/18 08:52 Carbon Dioxide 28 mEq/L (23-29) 04/30/18 08:52 BUN 22 mg/dL (8-23) 04/30/18 08:52 Creatinine 1.14 mg/dL (0.70-1.30) 04/30/18 08:52 Est GFR ( Amer) > 60 (> 60) 04/30/18 08:52 Est GFR (Non-Af Amer) > 60 (> 60) 04/30/18 08:52 BUN/Creatinine Ratio 19 (6-26) 04/30/18 08:52 Glucose 141 mg/dL (70-105) H 04/30/18 08:52 POC Glucose 245 mg/dL (70-99) H 05/01/18 15:45 Calculated Osmolality 282 (280-300) 04/30/18 08:52 Calcium 8.9 mg/dL (8.6-10.3) 04/30/18 08:52 Magnesium 1.2 mg/dL (1.6-2.6) L 04/30/18 08:52 Total Bilirubin 0.5 mg/dL (0.3-1.0) 04/30/18 08:52 AST 14 Units/L (13-39) 04/30/18 08:52 ALT 11 Units/L (7-52) 04/30/18 08:52 Alkaline Phosphatase 38 Units/L (34-104) 04/30/18 08:52 Serum Total Protein 6.5 g/dL (6.4-8.9) 04/30/18 08:52 Albumin 4.2 g/dL (3.5-5.7) 04/30/18 08:52 Globulin 2.3 g/dL (2.4-3.5) L 04/30/18 08:52 Albumin/Globulin Ratio 1.8 (1.1-2.2) 04/30/18 08:52 TSH 5.851 mcIU/mL (0.340-5.600) H 04/30/18 01:46 Free T4 1.07 ng/dl (0.70-2.00) 04/30/18 01:46 Urine Color Yellow (Yellow) 04/30/18 02:04 Urine Clarity Clear (Clear) 04/30/18 02:04 Urine pH 6.0 pH Units (5.0-8.0) 04/30/18 02:04 Ur Specific [place] 1.015 (1.010-1.025) 04/30/18 02:04 Urine Protein Negative mg/dL (Neg-Trace) 04/30/18 02:04 Urine Glucose (UA) Normal mg/dL (Normal) 04/30/18 02:04 Urine Ketones Negative mg/dL (Negative) 04/30/18 02:04 Urine Blood Negative (Negative) 04/30/18 02:04 Urine Nitrite Negative (Negative) 04/30/18 02:04 Urine Bilirubin Negative (Negative) 04/30/18 02:04 Urine Urobilinogen Normal mg/dL (Normal) 04/30/18 02:04 Ur Leukocyte Esterase Negative (Negative) 04/30/18 02:04 Salicylates < 2.5 mg/dL (15.0-30.0) L 04/30/18 01:46 Urine Opiates Screen Negative ng/mL (Kjsrct=740) 04/30/18 02:04 Acetaminophen < 10 mcg/mL (10-20) L 04/30/18 01:46 Ur Barbiturates Screen Negative ng/mL (Dfjxsm=180) 04/30/18 02:04 Ur Phencyclidine Scrn Negative ng/mL (Cutoff=25) 04/30/18 02:04 Ur Amphetamines Screen Negative ng/mL (Fcxiqa=8162) 04/30/18 02:04 U Benzodiazepines Scrn Negative ng/mL (Azlwml=656) 04/30/18 02:04 Urine Cocaine Screen Negative ng/mL (Cutoff= 300) 04/30/18 02:04 U Marijuana (THC) Screen Negative ng/mL (Cutoff = 50) 04/30/18 02:04 Ethyl Alcohol < 10 mg/dL (Less than 10) 04/30/18 01:46 Consult Discharge Plan - Plan Instructions: Depression (DC) Additional Instructions: D/C pt to [facility], coordinate follow up outpt prior to D/C home Referrals: Tomasz Villalobos MD [Primary Care Provider] - 05/08/18 2:00 pm Prescriptions: Sertraline [Zoloft] 50 mg PO DAILY 30 Days #30 tablet traZODone [TraZODone] 50 mg PO HS PRN 30 Days #30 tablet PRN Reason: Insomnia
[2018-05-02] MEDS ORDERED: traZODone 50 MG TABLET PO ONE (02:42)
[2018-05-02] MEDS: Levothyroxine 25 MCG TABLET PO SCH (06:19)
[2018-05-02] MEDS: *HR* Heparin 5,000 UNIT/ML VIAL SQ SCH (06:19)
[2018-05-02] MEDS: Aspirin Enteric Coated 81 MG Tablet PO SCH (07:59)
[2018-05-02] MEDS: Insulin LISPRO 300 UNITS/3 ML VIAL SQ SCH ×2 (07:59→11:57)
[2018-05-02 11:21] VITALS: BP 130/80
--- NOTE | 2018-05-02 13:03 | Internal Med Progress Note ---
Date of Encounter: 05/02/18 Time of Encounter: 10:00 - Assessment and plan (1) Suicidal ideation Current Visit: Yes Status: Acute (2) Hyponatremia Current Visit: Yes Status: Acute (3) Type 2 diabetes mellitus Current Visit: Yes Status: Chronic Qualifiers: Diabetes mellitus long-term insulin use: without long-term use Diabetes mellitus complication status: without complication Qualified Code(s): E11.9 - Type 2 diabetes mellitus without complications (4) Major depressive disorder, recurrent episode Current Visit: Yes Status: Acute Qualifiers: Major depression episode severity: moderate Qualified Code(s): F33.1 - Major depressive disorder, recurrent, moderate - Time Spent With Patient Total time spent is greater than 50% in coordination of care (as documented) at patient's floor/unit and/or counseling patient: - Constitutional Vitals: Temp Pulse Resp BP Pulse Ox 98.0 F 54 15 130/80 94 05/02/18 11:14 05/02/18 11:14 05/02/18 11:14 05/02/18 11:14 05/02/18 11:14 General appearance: Present: cooperative, A&O X 3, pleasant Internal Medicine: Result - Labs CBC & Chem 7: 04/30/18 01:46 04/30/18 08:52 Consult Discharge Plan - Plan Instructions: Depression (DC) Additional Instructions: D/C pt to [facility] home QAM, coordinate follow up outpt prior to D/C home Referrals: Tomasz Villalobos MD [Primary Care Provider] - 05/08/18 2:00 pm Prescriptions: Sertraline [Zoloft] 50 mg PO DAILY 30 Days #30 tablet traZODone [TraZODone] 50 mg PO HS PRN 30 Days #30 tablet PRN Reason: Insomnia
--- NOTE | 2018-05-02 13:08 | Discharge Summary ---
- NOTES TO OUTPATIENT PROVIDER Notes to Outpatient Provider: Pt was treated for SI and major depression. He has been started on new medications and will follow up with mental health on an outpatient basis. Date of Encounter: 05/02/18 Time of Encounter: 10:00 - Discharge Diagnosis (1) Suicidal ideation Priority: Primary Status: Acute Assessment and Plan: Pt denies today. States that he is feeling better. He states that he is unaware of any triggering events and that it "comes out of nowhere." Pt will be given rx for new medications and will follow up with mental health outpatient. Pt is being discharged to home, states that his daughter lives next door and is helpful with pt's appointments and needs. (2) Hyponatremia Priority: Secondary Status: Acute Assessment and Plan: Hyponatremia on admission. Likely due to HCTZ use, held wile inpatient. 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 Denies any suicidal/homicidal ideation today 05/02/18 reporting that he feels better since resuming antidepressants Patient will be sent home with prescriptions for trazodone 25 mg at bedtime as needed, Vistaril 25 mg 3 times daily as needed, and sertraline 50 mg by mouth daily Event Mgr is working on follow-up appointment with mental health. Qualifiers: Major depression episode severity: moderate Qualified Code(s): F33.1 - Major depressive disorder, recurrent, moderate Hospital course: Mr. Pink is a 82 year old male - Time Spent with Patient Total time spent providing and/or coordinating discharge services: - Discharge Medications Prescriptions: hydrOXYzine pamoate [HydrOXYzine Pamoate] 25 mg PO BID PRN #45 capsule PRN Reason: Anxiety Sertraline [Zoloft] 50 mg PO DAILY #30 tablet traZODone [TraZODone] 25 mg PO HS PRN #14 tablet PRN Reason: Insomnia Home Medications: Aspirin [Lo-Dose Aspirin EC] 81 mg PO DAILY 02/15/17 [History] Levothyroxine [Synthroid] 25 mcg PO DAILY 02/15/17 [History] Glimepiride [Amaryl] 1 - 2 mg PO DAILY 04/30/18 [History] Lisinopril/Hydrochlorothiazide [Zestoretic 20-25 mg Tablet] 1 tab PO DAILY 04/30 [History] Metformin HCl [Metformin HCl ER] 1,000 mg PO BID 04/30/18 [History] Simvastatin [Zocor] 20 mg PO HS 04/30/18 [History] Sertraline [Zoloft] 50 mg PO DAILY #30 tablet 05/02/18 [Rx] hydrOXYzine pamoate [HydrOXYzine Pamoate] 25 mg PO BID PRN #45 capsule 05/02/18 [Rx] traZODone [TraZODone] 25 mg PO HS PRN #14 tablet 05/02/18 [Rx] Allergies/Adverse Reactions: 3 Allergy/AdvReac Type Severity Reaction Status Date / Time Penicillins [PCN] Allergy Rash Verified 02/15/17 10:59 Date of admission: 04/30/18 04:06 Primary care physician: Tomasz Villalobos MD Consults: 04/30/18 05:45 Consult to Physician [CONS] Routine Consulting Provider: Naren Vega Reason for Consult: major depression; suicidal thoughts Time Notified: 05:46 Call Completed: Yes Discharging clinician: Tammy Busch Anticipated date of discharge: 05/02/18 - Constitutional Vitals: Temp Pulse Resp BP Pulse Ox 98.0 F 54 15 130/80 94 05/02/18 11:14 05/02/18 11:14 05/02/18 11:14 05/02/18 11:14 05/02/18 11:14 General appearance: Present: cooperative, A&O X 3, pleasant, no acute distress, answers questions appropriately - Head Head exam: Present: atraumatic, normal inspection, normocephalic - Eye Eye exam: Present: normal appearance, conjuntiva pink, sclera anicteric - Neck Neck exam general surgery: Present: supple, trachea midline. Absent: lymphadenopathy, tenderness - Respiratory Respiratory exam: Present: CTAB. Absent: accessory muscle use, rales, respiratory distress, rhonchi, wheezes - Cardiovascular Cardiovascular exam: Present: RRR, +S1, +S2. Absent: diastolic murmur, gallop, rubs, systolic murmur - GI/Abdominal GI/Abdominal exam: Present: normal bowel sounds, soft. Absent: distended, hepatomegaly, tenderness - Extremities Exam Extremities exam: Present: normal capillary refill, normal inspection, warm, radial pulses palpable and symmetrical. Absent: calf tenderness, cyanotic, pedal edema, tenderness - Neurological Exam Neurological exam: Present: alert, oriented X3, no focal deficits. Absent: facial droop, speech deficit - Skin Skin exam: Present: dry, intact, normal color, warm. Absent: rash - Patient Status Disposition: Home, Self-Care Condition: Good Functional capacity at discharge: independent ambulation Overall status at discharge: patient is progressing back to baseline - Discharge Instructions Instructions: Depression (DC) Follow Up With: Tomasz Villalobos MD [Primary Care Provider] - 05/08/18 2:00 pm Additional Instructions: Follow up with mental health and your PCP as chidi. You will need to follow up with PCP in the next 30 days so that you can get refills on your medications since there may be a delay getting into mental health. Return to the ER immediately if your symptoms return or worsen. REturn to your normal diet and activities as tolerated - Diet and Activity Activity: increase activity as tolerated Diet: advance to your usual diet
== END 2018-05-02 15:27 | disposition home or self-care (01) ==
LOC: 3BNU 01:06 → EMEROO 01:06 → 3BNU 04:52
PROVIDERS: ADMIT Pediatrics; ATTEND Pediatrics

== ENCOUNTER 2019-08-01 11:37 | Observation (INO) ==
--- NOTE | 2019-08-01 12:55 | Emergency Department Note ---
Disposition Clinical Impression: Uncontrolled diabetes mellitus Qualifiers: Diabetes mellitus type: type 2 Glycemic state: with hyperglycemia Qualified Code(s): E11.65 - Type 2 diabetes mellitus with hyperglycemia Disposition: Admitted As Inpatient Time of Disposition: 15:30 General Adult HPI - General Chief complaint: ED General Medical Stated complaint: High sugars/Cough Time Seen by Provider: 08/01/19 12:34 Source: patient Limitations: no limitations Nursing Notes Reviewed: Yes Vital Signs Reviewed: Yes - History of Present Illness HPI Narrative: 84-year-old male with a past medical history of diabetes and high blood pressure that reports to the ED after not being seen by a physician for over one year. Patient was seen by his physician who told him that his blood pressure was okay but his blood sugar was very elevated and sent him here for further evaluation. Family at bedside reports that the patient has probably not taken his metformin in the last several months, and reports that the patient had moved in with them approximate one year ago and they thought that he was handling his medication and it was only over the last 3 months that they became aware that the patient was not taking any of his medication. Family also reports that the patient may have a history of dementia although he has never been formally diagnosed with this. Patient thinks that it is Tuesday, but we are at [facility], that Jameson is the president, and while he knows the month and year of his he cannot recall the day. Pain Scale: 0 - Related Data Home Medications Medication Instructions Recorded Confirmed Glimepiride [Amaryl] 1 - 2 mg PO BID 04/30/18 08/01/19 Lisinopril/Hydrochlorothiazide 1 tab PO DAILY 04/30/18 08/01/19 [Zestoretic 20-25 mg Tablet] Simvastatin [Zocor] 20 mg PO HS 04/30/18 08/01/19 Levothyroxine Sodium 50 mcg PO QAM 05/30/18 08/01/19 SitaGLIPtin [Januvia] 50 - 100 mg PO DAILY 05/30/18 08/01/19 Metformin HCl [Metformin HCl ER] 1,000 mg PO BID 08/01/19 08/01/19 Previous Rx's Medication Instructions Recorded Sertraline [Zoloft] 50 mg PO DAILY #30 tablet 05/02/18 Allergies Allergy/AdvReac Type Severity Reaction Status Date / Time Penicillins [PCN] Allergy Rash Verified 05/16/18 23:16 Review of Systems: In addition to that documented in the HPI above, the additional ROS was obtained: Constitutional: Denies fevers or chills Eyes: Denies vision changes ENMT: Denies sore throat CV: Denies chest pain Resp: Denies SOB GI: Denies vomiting or diarrhea : Denies painful urination MSK: Denies recent trauma Skin: Denies new rashes Neuro: Denies new numbness or tingling or weakness Endocrine: Denies unexpected weight loss Heme: Denies bleeding disorders Past Medical History - Past Medical History Attestation: Yes The following information was validated with the patient. Medical history: Reports: cancer, diabetes, hyperlipidemia, hypertension, renal disease, thyroid disease Psychiatric history: Reports: anxiety, depression, previous psychiatric hospitalization - Social History Smoking Status: Never smoker Smokeless Tobacco Status: No Alcohol use: Reports: none Drug use: Reports: none Physical Exam General: A&O to self only but only knows month and year of , not day. No acute distress. Thin, cachetic. Head: atraumatic, normocephalic. Multiple skin growths present, consistent with actinic keratitis. ENT: No conjunctival injection, no scleral icterus. PERRLA. EOMI. Oropharynx non- erythematous. mucous membranes tacky. Neuro: No focal deficits, no speech deficit, no facial droop. BUE/BLE Str 5/5. Jorge UE/LE sensation intact. CN II-XII intact. Cerebellar testing with fi qsbt-[id number] and qtzv-[id number] intact. Pulm: Right-sided wheezing noted in upper middle and lower lobes, with decreased breath sounds in the bases. Cardio: RRR no m/r/g. Chest not tender to palpation. Abd: Soft, non-distended. Normoactive bowel sounds. Non-tender to palpation. No guarding. Non rigid. Extremities: Radial pulses 2+ jorge, dorsalis pedis/posterior tibialis 2+ jorge. No LE edema. No cyanosis, clubbing. Skin: Multiple areas of ecchymosis present, as well as multiple skin growths no josy. Patient appears disheveled and is if he does not take very good care of himself. Psych: Appropriate mood and affect. Answers questions appropriately. Cooperative with exam. - General Limitations: no limitations General appearance: alert, in no apparent distress Course Vital Signs Temperature 97.7 F 08/01/19 11:38 Pulse Rate 55 08/01/19 11:38 Respiratory Rate 18 08/01/19 11:38 Blood Pressure 136/73 08/01/19 11:38 O2 Sat by Pulse Oximetry 99 08/01/19 11:38 Temperature 97.3 F L 08/01/19 15:56 Pulse Rate 49 08/01/19 15:56 Respiratory Rate 18 08/01/19 15:56 Blood Pressure 143/92 08/01/19 15:56 O2 Sat by Pulse Oximetry 99 08/01/19 15:56 Oxygen Delivery Oxygen Delivery Room Air Medical Decision Making - MDM Narrative Medical decision making narrative: 84-year-old male with a past medical history of diabetes and high blood pressure reports being without his medications for an unspecified amount of time. Blood sugars reading high upon initial evaluation. We will obtain laboratory evaluation, head CT, chest x-ray. Suspect admission. Initial glucose showed value greater than 800. Initial potassium was greater than 3.5, we will start him on an insulin drip. Patient was given 2 L of fluids while in the department. VBG showed a pH of 7.33. Patient was admitted to the hospitalist Dr. Hunter who requested an ABG which was ordered. Results of the w orkup including any imaging and/or labwork was shared with the family at bedside. Family was given an opportunity to ask questions at bedside and all of their concerns were addressed. Family verbalized understanding and agreement with plan of care. Pt remained stable while in the department. - Medical Records Medical records reviewed: Yes I reviewed the patient's medical records. - Lab Data Lab results reviewed: Yes I reviewed the patient's lab results. Result diagrams: 08/01/19 12:40 08/01/19 12:40 Lab Results 08/01/19 08/01/19 08/01/19 Range/Units 12:40 12:40 12:40 WBC 7.7 (4.3-11.1) K/mcL RBC 4.52 (4.19-5.50) M/mcL Hgb 13.4 (12.9-16.9) g/dL Hct 41.4 (37.5-50.1) % MCV 91.6 (83.0-100.0) fL MCH 29.6 (28.0-33.3) pg MCHC 32.4 (31.6-35.5) g/dL RDW 13.3 (11.5-14.5) % Plt Count 264 (140-400) K/mcL MPV 10.2 (9.4-12.4) fL Immature Gran % 1.8 (0-4) % Seg Neutrophils % 77.4 % Lymphocytes % 13.2 % Monocytes % 6.8 % Eosinophils % 0.3 % Basophils % 0.5 % Neutrophils # 6.0 (1.6-8.9) K/mcL Lymphocytes # 1.0 (0.6-4.6) K/mcL Monocytes # 0.5 (0.0-1.3) K/mcL Eosinophils # 0.0 (0.0-0.6) K/mcL Basophils # 0.0 (0.0-0.2) K/mcL VBG pH (7.32-7.42) pH Units VBG pCO2 (41-51) mmHg VBG pO2 (25-50) mmHg VBG HCO3 (21-27) mEq/L Sodium 124 L (136-145) mEq/L Potassium 4.3 (3.5-5.1) mEq/L Chloride 87 L (98-107) mEq/L Carbon Dioxide 28 (23-29) mEq/L BUN 31 H (8-23) mg/dL Creatinine 1.76 H (0.70-1.30) mg/dL Est GFR ( Amer) 45 L (> 60) Est GFR (Non-Af Amer) 37 L (> 60) BUN/Creatinine Ratio 18 (6-26) Glucose 892 H* (70-105) mg/dL Calculated Osmolality 309 H (280-300) Lactic Acid (0.5-2.2) mmol/L Calcium 8.2 L (8.6-10.3) mg/dL Vitamin B12 653 (250-1100) pg/mL Beta-Hydroxybutyric Acd (0.02-0.27) mmol/L Procalcitonin 0.05 (0.00-0.15) ng/mL Urine Color (Yellow) Urine Clarity (Clear) Urine pH (5.0-8.0) pH Units Ur Specific [place] (1.010-1.025) Urine Protein (Neg-Trace) mg/dL Urine Glucose (UA) (Normal) mg/dL Urine Ketones (Negative) mg/dL Urine Blood (Negative) Urine Nitrite (Negative) Urine Bilirubin (Negative) Urine Urobilinogen (Normal) mg/dL Ur Leukocyte Esterase (Negative) Ur Culture Indicated? (NO) 08/01/19 08/01/19 08/01/19 Range/Units 12:40 13:00 13:08 WBC (4.3-11.1) K/mcL RBC (4.19-5.50) M/mcL Hgb (12.9-16.9) g/dL Hct (37.5-50.1) % MCV (83.0-100.0) fL MCH (28.0-33.3) pg MCHC (31.6-35.5) g/dL RDW (11.5-14.5) % Plt Count (140-400) K/mcL MPV (9.4-12.4) fL Immature Gran % (0-4) % Seg Neutrophils % % Lymphocytes % % Monocytes % % Eosinophils % % Basophils % % Neutrophils # (1.6-8.9) K/mcL Lymphocytes # (0.6-4.6) K/mcL Monocytes # (0.0-1.3) K/mcL Eosinophils # (0.0-0.6) K/mcL Basophils # (0.0-0.2) K/mcL VBG pH 7.33 (7.32-7.42) pH Units VBG pCO2 50 (41-51) mmHg VBG pO2 69 H (25-50) mmHg VBG HCO3 27 (21-27) mEq/L Sodium (136-145) mEq/L Potassium (3.5-5.1) mEq/L Chloride (98-107) mEq/L Carbon Dioxide (23-29) mEq/L BUN (8-23) mg/dL Creatinine (0.70-1.30) mg/dL Est GFR ( Amer) (> 60) Est GFR (Non-Af Amer) (> 60) BUN/Creatinine Ratio (6-26) Glucose (70-105) mg/dL Calculated Osmolality (280-300) Lactic Acid 3.1 H (0.5-2.2) mmol/L Calcium (8.6-10.3) mg/dL Vitamin B12 (250-1100) pg/mL Beta-Hydroxybutyric Acd 0.17 (0.02-0.27) mmol/L Procalcitonin (0.00-0.15) ng/mL Urine Color (Yellow) Urine Clarity (Clear) Urine pH (5.0-8.0) pH Units Ur Specific [place] (1.010-1.025) Urine Protein (Neg-Trace) mg/dL Urine Glucose (UA) (Normal) mg/dL Urine Ketones (Negative) mg/dL Urine Blood (Negative) Urine Nitrite (Negative) Urine Bilirubin (Negative) Urine Urobilinogen (Normal) mg/dL Ur Leukocyte Esterase (Negative) Ur Culture Indicated? (NO) 08/01/19 Range/Units 14:08 WBC (4.3-11.1) K/mcL RBC (4.19-5.50) M/mcL Hgb (12.9-16.9) g/dL Hct (37.5-50.1) % MCV (83.0-100.0) fL MCH (28.0-33.3) pg MCHC (31.6-35.5) g/dL RDW (11.5-14.5) % Plt Count (140-400) K/mcL MPV (9.4-12.4) fL Immature Gran % (0-4) % Seg Neutrophils % % Lymphocytes % % Monocytes % % Eosinophils % % Basophils % % Neutrophils # (1.6-8.9) K/mcL Lymphocytes # (0.6-4.6) K/mcL Monocytes # (0.0-1.3) K/mcL Eosinophils # (0.0-0.6) K/mcL Basophils # (0.0-0.2) K/mcL VBG pH (7.32-7.42) pH Units VBG pCO2 (41-51) mmHg VBG pO2 (25-50) mmHg VBG HCO3 (21-27) mEq/L Sodium (136-145) mEq/L Potassium (3.5-5.1) mEq/L Chloride (98-107) mEq/L Carbon Dioxide (23-29) mEq/L BUN (8-23) mg/dL Creatinine (0.70-1.30) mg/dL Est GFR ( Amer) (> 60) Est GFR (Non-Af Amer) (> 60) BUN/Creatinine Ratio (6-26) Glucose (70-105) mg/dL Calculated Osmolality (280-300) Lactic Acid (0.5-2.2) mmol/L Calcium (8.6-10.3) mg/dL Vitamin B12 (250-1100) pg/mL Beta-Hydroxybutyric Acd (0.02-0.27) mmol/L Procalcitonin (0.00-0.15) ng/mL Urine Color Yellow (Yellow) Urine Clarity Clear (Clear) Urine pH 6.0 (5.0-8.0) pH Units Ur Specific [place] 1.029 H (1.010-1.025) Urine Protein Negative (Neg-Trace) mg/dL Urine Glucose (UA) >=1000 H (Normal) mg/dL Urine Ketones Negative (Negative) mg/dL Urine Blood Negative (Negative) Urine Nitrite Negative (Negative) Urine Bilirubin Negative (Negative) Urine Urobilinogen Normal (Normal) mg/dL Ur Leukocyte Esterase Negative (Negative) Ur Culture Indicated? NO (NO) - Radiology Data Radiology results reviewed: Yes I reviewed the patient's radiology results. Chest X-Ray 08/01/19 13:09 IMPRESSION: No acute cardiopulmonary process. D/ / John Giron MD / John Giron MD Interpreting Provider: John Giron MD Head CT 08/01/19 16:00 IMPRESSION: No acute intracranial abnormality. Diffuse atrophic changes with findings suggesting chronic microvascular ischemia D/ / John Edward MD / John Edward MD Interpreting Provider: John Edward MD Attestation Statement - Attestation Attestation: I examined this patient and my medical decision-making was reviewed with the Resident Physician. I agree with the documented findings, disposition and treatment plan as described except to the extent set forth below. 84 yo male presents to the ED for evaluation of cough and elevated FSBS. Pt reports he has had a cough increasing over the past 3-4 days. Was evaluated by the PCP who found his FSBS to be "high". Has not been taking medications at home, metformin for DM type 2. Denies fever, chills, nausea, vomiting, diarrhea, chest pain, abd pain. Family reports intermittent confusion. Cough is nonproductive. Chest x-ray did not show evidence of acute infiltrate. Urinalysis does not show evidence of infection. Patient has a significantly elevated glucose however he does not have an anion gap. He is likely has HHS secondary to not taking his metformin. Patient will be admitted to the hospitalist for further care and evaluation. He was given IV fluids and insulin in the emergency department.
[2019-08-01 13:11] LABS: VBG HCO3 27 mEq/L (21-27); VBG PCO2 50 mmHg (41-51); VBG PH 7.33 pH Units (7.32-7.42); VBG PO2 69 mmHg (25-50)
[2019-08-01 13:16] LABS: Basophils % 0.5 %; Eosinophils % 0.3 %; Hematocrit 41.4 % (37.5-50.1); Hemoglobin 13.4 g/dL (12.9-16.9); Immature Granulocytes % 1.8 % (0-4); Lymphocytes % 13.2 %; Mean Corpuscular HGB Conc 32.4 g/dL (31.6-35.5); Mean Corpuscular Hemoglobin 29.6 pg (28.0-33.3); Mean Corpuscular Volume 91.6 fL (83.0-100.0); Mean Platelet Volume 10.2 fL (9.4-12.4); Monocytes # 0.5 K/mcL (0.0-1.3); Monocytes % 6.8 %; Platelet Count 264 K/mcL (140-400); Red Blood Count 4.52 M/mcL (4.19-5.50); Red Cell Distribution Width 13.3 % (11.5-14.5); Segmented Neutrophils % 77.4 %; White Blood Count 7.7 K/mcL (4.3-11.1)
[2019-08-01] MEDS ORDERED: 0.9 % Sodium Chloride 1,000 ML IVC ONE ×2 (13:24→14:12)
[2019-08-01 13:55] LABS: Calcium 8.2 mg/dL (8.6-10.3); Potassium 4.3 mEq/L (3.5-5.1)
[2019-08-01] MEDS ORDERED: Insulin Human Regular 10 UNIT in 0.9 % Sodium Chloride 10 ML IV ONE (14:12)
[2019-08-01 14:20] LABS: Bilirubin,Urine Negative (Negative); Blood,Urine Negative (Negative); Clarity,Urine Clear (Clear); Color,Urine Yellow (Yellow); Glucose,Urine (UA) >=1000 mg/dL (Normal); Ketones,Urine Negative (Negative); Leukocyte Esterase,Urine Negative (Negative); Nitrite,Urine Negative (Negative); Protein,Urine Negative (Neg-Trace); Specific Gravity,Urine 1.029 (1.010-1.025); Urobilinogen,Urine Normal (Normal)
[2019-08-01 14:45] LABS: ABG Base Excess -1 mEq/L (-2 to 3); ABG HCO3 22 mEq/L (21-27); ABG Oxygen Saturation 97 % (95-98); ABG PCO2 31 mmHg (35-45); ABG PH 7.46 pH Units (7.32-7.45); ABG PO2 88 mmHg (85-104); ABG TCO2 23 mEq/L (20-26)
[2019-08-01] MEDS ORDERED: Ondansetron 4 MG/2 ML VIAL IVP PRN (14:57)
[2019-08-01] MEDS ORDERED: Mag Hydrox/Al Hydrox/Simeth 30 ML UDC PO PRN (14:57)
[2019-08-01] MEDS ORDERED: *HR* Promethazine 25 MG/ML VIAL IVP PRN (14:57)
[2019-08-01] MEDS ORDERED: Naloxone 0.4 MG/ML INJ IVP PRN (14:57)
[2019-08-01] MEDS ORDERED: Acetaminophen 325 MG TABLET PO PRN (14:57)
[2019-08-01] MEDS ORDERED: D5% in Water 1,000 ML IVC PRN (14:59)
[2019-08-01] MEDS ORDERED: *HR* Dextrose 50 % in Water (Syg) 50 ML SYRINGE IVP PRN (14:59)
[2019-08-01] MEDS ORDERED: Dextrose Gel 15 GM/37.5 ML TUBE PO PRN ×2 (14:59)
[2019-08-01] MEDS ORDERED: 0.9 % Sodium Chloride 1,000 ML IVC SCH (15:15)
--- NOTE | 2019-08-01 15:35 | Internal Med History&Physical ---
Date of Encounter: 08/01/19 Time of Encounter: 15:33 Internal Medicine - H&P: HPI Admitted From: Home Plans for Post Hospital Care: Home History of present illness: Mr. Pink is a 84 year old male with past medical history significant for hypot hyroidism, hypertension, hyperlipidemia, diabetes mellitus, and depression presented with confusion per family. Hhramiro has a history of diabetes and was on 3 different oral agent including Amaryl, metformin, and Januvia. His recent hemoglobin A1c in 07/2018 was 8.4. Per family, patient was diagnosis with depression recently, ever since, he stopped taking medications including those for diabetes. He started becoming more and more confused in the last couple days, he was also noted having drunk large amounts of water and urinated more frequently. Patient reported absence of fever, chills, or night sweats recently. He denies chest pain, shortness of breath, cough with mucus production, or palpitation. He reported absence of dysuria, urgency, or frequency. In the ED, patient vital signs were stable, afebrile, labs revealed elevated BUN/creatinine, blood glucose was more than 800. ABG showed a normal bicarbonate and near normal pH, ketone was negative. He received 10 units regular insulin as well as IVF bolus. He is admitted for further evaluation and management. Status discussed with patient and family, will be full code while in the hospital. Past Med Surg Social Fam HX - Past Medical History Medical history: cancer, diabetes, hyperlipidemia, hypertension, renal disease, thyroid disease Additional medical history: Skin cancer Psychiatric history: anxiety, depression, previous psychiatric hospitalization - Past Surgical History Additional surgical history: skin cancer removed - Social History Smoking Status: Never smoker Smokeless Tobacco Status: No Alcohol use: none Drug use: none - Family History Mother Living Status: Father Living Status: Internal Medicine - H&P: Meds Glimepiride [Amaryl] 1 - 2 mg PO DAILY 04/30/18 [History] Lisinopril/Hydrochlorothiazide [Zestoretic 20-25 mg Tablet] 1 tab PO DAILY 04/30/18 [History] Simvastatin [Zocor] 20 mg PO HS 04/30/18 [History] Sertraline [Zoloft] 50 mg PO DAILY #30 tablet 05/02/18 [Rx] Levothyroxine Sodium 50 mcg PO DAILY 05/30/18 [History] SitaGLIPtin [Januvia] 100 mg PO DAILY 05/30/18 [History] Metformin HCl [Metformin HCl ER] 1,000 mg PO BID 08/01/19 [History] Allergy/AdvReac Type Severity Reaction Status Date / Time Penicillins [PCN] Allergy Rash Verified 05/16/18 23:16 All Systems PM: A 10-system review of systems was performed and is negative for pertinent findings except as documented above in the HPI. Review of systems: REVIEW OF SYSTEMS: CONSTITUTIONAL: No weight loss, fever, chills, weakness or fatigue. HEENT: Eyes: No visual loss, blurred vision, double vision or yellow sclerae. Ears, Nose, Throat: No hearing loss, sneezing, congestion, runny nose or sore throat. SKIN: No rash or itching. CARDIOVASCULAR: No chest pain, chest pressure or chest discomfort. No palpitations or edema. RESPIRATORY: No shortness of breath, cough or sputum. GASTROINTESTINAL: No anorexia, nausea, vomiting or diarrhea. No abdominal pain or blood. GENITOURINARY: No dysuria, urgency, or frequency. NEUROLOGICAL: No headache, dizziness, syncope, paralysis, ataxia, numbness or tingling in the extremities. No change in bowel or bladder control. MUSCULOSKELETAL: No muscle, back pain, joint pain or stiffness. HEMATOLOGIC: No anemia, bleeding or bruising. LYMPHATICS: No enlarged nodes. No history of splenectomy. PSYCHIATRIC: No history of depression or anxiety. ENDOCRINOLOGIC: No reports of sweating, cold or heat intolerance. No polyuria or polydipsia. - Constitutional Vitals: Temp Pulse Resp BP Pulse Ox 97.7 F 49 20 124/73 100 08/01/19 11:38 08/01/19 13:52 08/01/19 13:52 08/01/19 13:52 08/01/19 13:52 General appearance: Present: A&O X 3 Exam: PHYSICAL EXAMINATION: GENERAL APPEARANCE: The patient is alert, oriented and in no acute distress. HEENT: Head is normocephalic. The sinuses are nontender. Pupils are equal and reactive. The nares are patent. Oropharynx clear without lesions. NECK: Supple without lymphadenopathy. HEART: Regular rate and rhythm. LUNGS: No crackles or wheezes are heard. ABDOMEN: Soft, nontender, nondistended with good bowel sounds heard. Inguinal area is normal. EXTREMITIES: Without cyanosis, clubbing or edema. NEUROLOGICAL: Gross nonfocal. SKIN: Warm and dry without any rash. Internal Med - H&P Results - Labs CBC & Chem 7: 08/01/19 12:40 08/01/19 12:40 Labs: Short CBC 08/01/19 Range/Units 12:40 WBC 7.7 (4.3-11.1) K/mcL Hgb 13.4 (12.9-16.9) g/dL Hct 41.4 (37.5-50.1) % Plt Count 264 (140-400) K/mcL Neutrophils # 6.0 (1.6-8.9) K/mcL BMP 08/01/19 12:40 Sodium 124 L Potassium 4.3 Chloride 87 L Carbon Dioxide 28 BUN 31 H Creatinine 1.76 H Glucose 892 H* Calcium 8.2 L Urine 08/01/19 Range/Units 14:08 Urine Color Yellow (Yellow) Urine Clarity Clear (Clear) Urine pH 6.0 (5.0-8.0) pH Units Ur Specific [place] 1.029 H (1.010-1.025) Urine Protein Negative (Neg-Trace) mg/dL Urine Glucose (UA) >=1000 H (Normal) mg/dL - ABG Interpretation ABG results: 08/01/19 08/01/19 13:08 14:42 ABG pH 7.46 H ABG pCO2 31 L ABG pO2 88 ABG HCO3 22 ABG Total CO2 23 ABG O2 Saturation 97 ABG Base Excess -1 VBG pH 7.33 VBG pCO2 50 VBG pO2 69 H VBG HCO3 27 - Impressions ITS Impressions Chest X-Ray 08/01/19 13:09 IMPRESSION: No acute cardiopulmonary process. D/ / John Giron MD / John Giron MD Interpreting Provider: John Giron MD - Assessment and Plan (1) Uncontrolled diabetes mellitus Current Visit: Yes Status: Acute Assessment and plan: 84-year-old gentleman with history of diabetes mellitus, not taking any medications for at least 5-6 months, presented with hyperglycemia, confusion, and dehydration. A1c in 07/2018 was 8.4. He recently was diagnosed with depression, was placed on Zoloft and trazodone, patient stopped taking all the medications for for at least 5-6 months. Blood glucose was more than 800 at the ED, ketone was negative, ABG no acute acidosis. received 10 unit IV regular insulin as well as 2000 mL normal saline fluid. We will continue IV fluid with 0.45NS. Place patient on insulin sliding scale q6h. NPO. Repeat labs in the morning. Once BG is controlled, will resume diet. Discussed the discharge plan with patient and family, family agreed to supervise patient taking medications as well as checking blood glucose after discharge. Qualifiers: Diabetes mellitus type: type 2 Glycemic state: with hyperglycemia Qualified Code(s): E11.65 - Type 2 diabetes mellitus with hyperglycemia (2) Depression Current Visit: No Status: Chronic Assessment and plan: Patient denies suicidal ideation, he admitted like of energy at times but denies any trouble sleeping or concentrating. We will continue home medications including Zoloft and trazodone. Repeated TSH, free T4, vitamin D, and vitamin B12. Qualifiers: Depression Type: unspecified Qualified Code(s): F32.9 - Major depressive disorder, single episode, unspecified (3) Hyponatremia Current Visit: Yes Status: Acute Assessment and plan: Hyponatremia is artifact caused by severe hyperglycemia. Corrected Na is 137. Change IVF to 0.45 @100cc/h. Continue monitoring BMP. Continue IV fluid. (4) Acute on chronic renal failure Current Visit: Yes Status: Acute Assessment and plan: Baseline creatinine is between 1.2-1.5, creatinine 1.76 on admission. Received 2000 mL IV fluid. Repeat labs in the morning. Avoid nephrotoxic agent. Qualifiers: Acute renal failure type: unspecified Chronic kidney disease stage: stage 3 (moderate) Qualified Code(s): N17.9 - Acute kidney failure, unspecified; N18.3 - Chronic kidney disease, stage 3 (moderate) (5) DVT prophylaxis Current Visit: Yes Status: Acute Assessment and plan: Heparin subcutaneous. - Time Spent With Patient Total time spent is greater than 50% in coordination of care (as documented) at patient's floor/unit and/or counseling patient: Greater than 35 minutes
[2019-08-01 16:13] LABS: Estimated Average Glucose 467 mg/dl
[2019-08-01] MEDS ORDERED: Insulin LISPRO 300 UNITS/3 ML VIAL SQ SCH ×2 (16:30→21:00)
[2019-08-01 16:46] LABS: Procalcitonin 0.05 ng/mL (0.00-0.15)
[2019-08-01] MEDS ORDERED: Insulin LISPRO 300 UNITS/3 ML VIAL SQ ONE (16:50)
[2019-08-01] MEDS: *HR* Heparin 5,000 UNIT/ML VIAL SQ SCH (18:49)
[2019-08-01] MEDS: Insulin LISPRO 300 UNITS/3 ML VIAL SQ SCH (18:49)
[2019-08-01 20:16] LABS: Thyroid Stimulating Hormone 4.89 mcIU/mL (0.340-5.600)
[2019-08-01] MEDS ORDERED: traZODone 50 MG TABLET PO PRN (21:00)
[2019-08-02] MEDS: Insulin LISPRO 300 UNITS/3 ML VIAL SQ SCH ×4 (02:33→17:35)
[2019-08-02 05:50] LABS: Basophils % 0.5 %; Eosinophils # 0.1 K/mcL (0.0-0.6); Eosinophils % 0.7 %; Hematocrit 39.4 % (37.5-50.1); Hemoglobin 13.2 g/dL (12.9-16.9); Immature Granulocytes % 1.4 % (0-4); Lymphocytes # 1.4 K/mcL (0.6-4.6); Lymphocytes % 17.1 %; Mean Corpuscular HGB Conc 33.5 g/dL (31.6-35.5); Mean Corpuscular Hemoglobin 30.1 pg (28.0-33.3); Mean Platelet Volume 9.8 fL (9.4-12.4); Monocytes # 0.5 K/mcL (0.0-1.3); Monocytes % 6.3 %; Neutrophils # 6.3 K/mcL (1.6-8.9); Platelet Count 250 K/mcL (140-400); Red Blood Count 4.38 M/mcL (4.19-5.50); Red Cell Distribution Width 12.9 % (11.5-14.5); White Blood Count 8.4 K/mcL (4.3-11.1)
[2019-08-02] MEDS: *HR* Heparin 5,000 UNIT/ML VIAL SQ SCH ×2 (06:12→17:05)
[2019-08-02 07:05] LABS: BUN/Creatinine Ratio 18 (6-26); Blood Urea Nitrogen 23 mg/dL (8-23); Calcium 8.3 mg/dL (8.6-10.3); Carbon Dioxide 25 mEq/L (23-29); Chloride 101 mEq/L (98-107); Glucose 212 mg/dL (70-105); Magnesium 1.6 mg/dL (1.6-2.6); Osmolality,Calculated 292 (280-300); Phosphorous 3.7 mg/dL (2.7-4.5); Potassium 3.9 mEq/L (3.5-5.1); Sodium 136 mEq/L (136-145); eGFR For African Americans > 60 (> 60); eGFR For Non-African Americans 53 (> 60)
[2019-08-02] MEDS: Aspirin Enteric Coated 81 MG Tablet PO SCH (08:07)
[2019-08-02] MEDS: Lisinopril 20 MG TABLET PO SCH (08:07)
--- NOTE | 2019-08-02 11:17 | Internal Med Progress Note ---
Hospitalist Progress Note - Encounter Date of Encounter: 08/02/19 Time of Encounter: 11:14 - Subjective Interval History: Mr. Pink is a 84 year old male with past medical history significant for hypothyroidism, hypertension, hyperlipidemia, diabetes mellitus, and depression presented with confusion per family. Treva has a history of diabetes and was on 3 different oral agent including Amaryl, metformin, and Januvia. His recent hemoglobin A1c in 07/2018 was 8.4. Per family, patient was diagnosis with depression recently, ever since, he stopped taking medications including those for diabetes. He started becoming more and more confused in the last couple days, he was also noted having drunk large amounts of water and urinated more frequently. In the ED, blood glucose was more than 800. ABG showed a normal bicarbonate and near normal pH, ketone was negative. He received 10 units regular insulin as well as IVF bolus. He is admitted for further evaluation and management. Patient seen and examined in the room. He reported absence of chest pain, sob, or palpitation. - Exam Vitals: Temp Pulse Resp BP Pulse Ox 97.7 F 76 20 126/63 96 08/02/19 07:44 08/02/19 07:44 08/02/19 07:44 08/02/19 07:44 08/02/19 07:44 Exam: PHYSICAL EXAMINATION: GENERAL APPEARANCE: The patient is alert, oriented and in no acute distress. HEENT: Head is normocephalic. The sinuses are nontender. Pupils are equal and reactive. The nares are patent. Oropharynx clear without lesions. NECK: Supple without lymphadenopathy. HEART: Regular rate and rhythm. LUNGS: No crackles or wheezes are heard. ABDOMEN: Soft, nontender, nondistended with good bowel sounds heard. Inguinal area is normal. EXTREMITIES: Without cyanosis, clubbing or edema. NEUROLOGICAL: Gross nonfocal. SKIN: Warm and dry without any rash. - Assessment and Plan (1) Uncontrolled diabetes mellitus Current Visit: Yes Status: Acute Assessment and Plan: 08/01 84-year-old gentleman with history of diabetes mellitus, not taking any medications for at least 5-6 months, presented with hyperglycemia, confusion, and dehydration. A1c in 07/2018 was 8.4. He recently was diagnosed with depression, was placed on Zoloft and trazodone, patient stopped taking all the medications for for at l east 5-6 months. Blood glucose was more than 800 at the ED, ketone was negative, ABG no acute acidosis. received 10 unit IV regular insulin as well as 2000 mL normal saline fluid. We will continue IV fluid with 0.45NS. Place patient on insulin sliding scale q6h. NPO. Repeat labs in the morning. Once BG is controlled, will resume diet. Discussed the discharge plan with patient and family, family agreed to supervise patient taking medications as well as checking blood glucose after discharge. 08/02 Blood glucose control between 150-200, diabetic diet resume, IV fluid discontinued. Education regarding medication compliance performed again with family at the bedside. Plan to discharge patient tomorrow. (2) Depression Current Visit: No Status: Chronic Assessment and Plan: Patient denies suicidal ideation, he admitted like of energy at times but denies any trouble sleeping or concentrating. Continue home medications including Zoloft and trazodone. (3) Hyponatremia Current Visit: Yes Status: Resolved Assessment and Plan: Hyponatremia corrected, discontinue IV fluid. (4) Acute on chronic renal failure Current Visit: Yes Status: Acute Assessment and Plan: Creatinine at the baseline currently, IV fluids discontinued, continue monitoring. (5) DVT prophylaxis Current Visit: Yes Status: Acute Assessment and Plan: Heparin subcutaneous. - Time Spent with Patient Total time spent is greater than 50% in coordination of care (as documented) at patient's floor/unit and/or counseling patient: Greater than 35 minutes Plan of Care Discussed with: patient Internal Medicine: Result - Labs CBC & Chem 7: 08/02/19 05:40 08/02/19 05:40 Labs: Short CBC 08/01/19 08/02/19 Range/Units 12:40 05:40 WBC 7.7 8.4 (4.3-11.1) K/mcL Hgb 13.4 13.2 (12.9-16.9) g/dL Hct 41.4 39.4 (37.5-50.1) % Plt Count 264 250 (140-400) K/mcL Neutrophils # 6.0 6.3 (1.6-8.9) K/mcL BMP 08/01/19 08/02/19 12:40 05:40 Sodium 124 L 136 D Potassium 4.3 3.9 Chloride 87 L 101 Carbon Dioxide 28 25 BUN 31 H 23 Creatinine 1.76 H 1.29 Glucose 892 H* 212 H Calcium 8.2 L 8.3 L Urine 08/01/19 Range/Units 14:08 Urine Color Yellow (Yellow) Urine Clarity Clear (Clear) Urine pH 6.0 (5.0-8.0) pH Units Ur Specific [facility] 1.029 H (1.010-1.025) Urine Protein Negative (Neg-Trace) mg/dL Urine Glucose (UA) >=1000 H (Normal) mg/dL - ABG Interpretation ABG results: ABG ABG pH 7.46 pH Units (7.32-7.45) H 08/01/19 14:42 ABG pCO2 31 mmHg (35-45) L 08/01/19 14:42 ABG pO2 88 mmHg (85-104) 08/01/19 14:42 ABG O2 Saturation 97 % (95-98) 08/01/19 14:42 - Impressions Impressions Chest X-Ray 08/01/19 13:09 IMPRESSION: No acute cardiopulmonary process. D/ / John Giron MD / John Giron MD Interpreting Provider: John Giron MD Head CT 08/01/19 16:00 IMPRESSION: No acute intracranial abnormality. Diffuse atrophic changes with findings suggesting chronic microvascular ischemia D/ / John Edward MD / John Edward MD Interpreting Provider: John Edward MD Consult Discharge Plan - Plan Referrals: Tomasz Villalobos MD [Primary Care Provider] - 08/07/19 2:00 pm (1) Uncontrolled diabetes mellitus Qualifiers: Diabetes mellitus type: type 2 Glycemic state: with hyperglycemia Qualified Code(s): E11.65 - Type 2 diabetes mellitus with hyperglycemia (2) Depression Qualifiers: Depression Type: unspecified Qualified Code(s): F32.9 - Major depressive disorder, single episode, unspecified (4) Acute on chronic renal failure Qualifiers: Acute renal failure type: unspecified Chronic kidney disease stage: stage 3 (moderate) Qualified Code(s): N17.9 - Acute kidney failure, unspecified; N18.3 - Chronic kidney disease, stage 3 (moderate)
[2019-08-02] MEDS: *HR* Glimepiride 2 MG TABLET PO SCH (20:25)
[2019-08-02] MEDS: *HR* Metformin 500 MG TABLET PO SCH (20:50)
[2019-08-02] MEDS ORDERED: Insulin DETEMIR 100 UNIT/ML X5UNITS SQ SCH (21:00)
[2019-08-02] MEDS ORDERED: Insulin LISPRO 300 UNITS/3 ML VIAL SQ SCH (21:00)
[2019-08-03 02:15] LABS: Calcium 7.9 mg/dL (8.6-10.3); Potassium 3.7 mEq/L (3.5-5.1)
[2019-08-03] MEDS: *HR* Heparin 5,000 UNIT/ML VIAL SQ SCH (05:33)
[2019-08-03] MEDS: Insulin LISPRO 300 UNITS/3 ML VIAL SQ SCH ×2 (08:32→13:21)
[2019-08-03] MEDS ORDERED: *HR* SitaGLIPtin 100 MG TABLET PO SCH (09:00)
[2019-08-03] MEDS: *HR* Metformin 500 MG TABLET PO SCH (09:12)
[2019-08-03] MEDS: Aspirin Enteric Coated 81 MG Tablet PO SCH (09:12)
[2019-08-03] MEDS: *HR* Glimepiride 2 MG TABLET PO SCH (09:13)
[2019-08-03] MEDS: Lisinopril 20 MG TABLET PO SCH (09:13)
--- NOTE | 2019-08-03 09:44 | Discharge Summary ---
- NOTES TO OUTPATIENT PROVIDER Notes to Outpatient Provider: f/u with PCP within a week. Date of Encounter: 08/03/19 Time of Encounter: 09:38 - Discharge Diagnosis (1) Uncontrolled diabetes mellitus Priority: Primary Status: Acute Assessment and Plan: 08/01 84-year-old gentleman with history of diabetes mellitus, not taking any medications for at least 5-6 months, presented with hyperglycemia, confusion, and dehydration. A1c in 07/2018 was 8.4. He recently was diagnosed with depression, was placed on Zoloft and trazodone, patient stopped taking all the medications for for at least 5-6 months. Blood glucose was more than 800 at the ED, ketone was negative, ABG no acute acidosis. received 10 unit IV regular insulin as well as 2000 mL normal saline fluid. We will continue IV fluid with 0.45NS. Place patient on insulin sliding scale q6h. NPO. Repeat labs in the morning. Once BG is controlled, will resume diet. Discussed the discharge plan with patient and family, family agreed to supervise patient taking medications as well as checking blood glucose after discharge. 08/02 Blood glucose control between 150-200, diabetic diet resume, IV fluid discontinued. Education regarding medication compliance performed again with family at the bedside. Plan to discharge patient tomorrow. Qualifiers: Diabetes mellitus type: type 2 Glycemic state: with hyperglycemia Qualified Code(s): E11.65 - Type 2 diabetes mellitus with hyperglycemia (2) Depression Priority: Secondary Status: Chronic Qualifiers: Depression Type: unspecified Qualified Code(s): F32.9 - Major depressive disorder, single episode, unspecified (3) Hyponatremia Priority: Primary Status: Resolved Assessment and Plan: Hyponatremia corrected, discontinue IV fluid. (4) Acute on chronic renal failure Priority: Primary Status: Acute Qualifiers: Acute renal failure type: unspecified Chronic kidney disease stage: stage 3 (moderate) Qualified Code(s): N17.9 - Acute kidney failure, unspecified; N18.3 - Chronic kidney disease, stage 3 (moderate) (5) DVT prophylaxis Priority: Primary Status: Acute Hospital course: Mr. Pink is a 84 year old male with past medical history significant for hypothyroidism, hypertension, hyperlipidemia, diabetes mellitus, and depression presented with confusion per family. Hhe has a history of diabetes and was on 3 different oral agent including Amaryl, metformin, and Januvia. His recent hemoglobin A1c in 07/2018 was 8.4. Per family, patient was diagnosis with depression recently, ever since, he stopped taking medications including those for diabetes. He started becoming more and more confused in the last couple days, he was also noted having drunk large amounts of water and urinated more frequently. In the ED, labs revealed elevated BUN/creatinine, blood glucose was more than 800, A1c 17.9. ABG showed a normal bicarbonate and near normal pH, ketone was negative. He received 10 units regular insulin as well as IVF bolus. He was admitted. Patient was nothing by mouth The beginning, IV fluid was continued, he was placed on insulin sliding scale, blood glucose was rapidly corrected. Because of significantly elevated hemoglobin A1c, long-acting insulin was introduced, patient home medications were resumed. I performed a face to face discussion/education with patient and her family, family agrees they will supervise patient to take medications including insulin as well as check blood glucose. Patient and family chose to go home instead of long-term care facility, patient is discharged, he will follow-up with PCP within a week. Discharge discussed with: patient Time spent discussing smoking cessation with patient: more than 10 minutes - Time Spent with Patient Total time spent providing and/or coordinating discharge services: Time spent: Greater than 30 minutes - Discharge Medications Prescriptions: New Insulin DETEMIR [Levemir] 10 unit SQ HS #1 vial Continued Simvastatin [Zocor] 20 mg PO HS Glimepiride [Amaryl] 1 - 2 mg PO BID Lisinopril/Hydrochlorothiazide [Zestoretic 20-25 mg Tablet] 1 tab PO DAILY Sertraline [Zoloft] 50 mg PO DAILY #30 tablet Levothyroxine Sodium 50 mcg PO QAM SitaGLIPtin [Januvia] 50 - 100 mg PO DAILY Metformin HCl [Metformin HCl ER] 1,000 mg PO BID Home Medications: Glimepiride [Amaryl] 1 - 2 mg PO BID 04/30/18 [History] Lisinopril/Hydrochlorothiazide [Zestoretic 20-25 mg Tablet] 1 tab PO DAILY 04/30/18 [History] Simvastatin [Zocor] 20 mg PO HS 04/30/18 [History] Sertraline [Zoloft] 50 mg PO DAILY #30 tablet 05/02/18 [Rx] Levothyroxine Sodium 50 mcg PO QAM 05/30/18 [History] SitaGLIPtin [Januvia] 50 - 100 mg PO DAILY 05/30/18 [History] Metformin HCl [Metformin HCl ER] 1,000 mg PO BID 08/01/19 [History] Insulin DETEMIR [Levemir] 10 unit SQ HS #1 vial 08/03/19 [Rx] Allergies/Adverse Reactions: Allergy/AdvReac Type Severity Reaction Status Date / Time Penicillins [PCN] Allergy Rash Verified 05/16/18 23:16 Date of admission: 08/01/19 14:38 Primary care physician: Tomasz Villalobos MD Consults: 08/01/19 16:30 Consult to Banquet Set Up Person [CONS] Routine Reason for SW Consult: patient did not have medication to take. Anticipated date of discharge: 08/03/19 - Constitutional Vitals: Temp Pulse Resp BP Pulse Ox 97.9 F 53 16 104/65 96 08/03/19 07:52 08/03/19 07:52 08/03/19 07:52 08/03/19 07:52 08/03/19 07:52 General appearance: Present: A&O X 3 Exam: PHYSICAL EXAMINATION: GENERAL APPEARANCE: The patient is alert, oriented and in no acute distress. HEENT: Head is normocephalic. The sinuses are nontender. Pupils are equal and reactive. The nares are patent. Oropharynx clear without lesions. NECK: Supple without lymphadenopathy. HEART: Regular rate and rhythm. LUNGS: No crackles or wheezes are heard. ABDOMEN: Soft, nontender, nondistended with good bowel sounds heard. Inguinal area is normal. EXTREMITIES: Without cyanosis, clubbing or edema. NEUROLOGICAL: Gross nonfocal. SKIN: Warm and dry without any rash. - Patient Status Disposition: Home, Self-Care Condition: Fair Functional capacity at discharge: independent ambulation Overall status at discharge: patient is progressing back to baseline - Discharge Instructions Follow Up With: oTmasz Villalobos MD [Primary Care Provider] - 08/07/19 2:00 pm - Diet and Activity Activity: increase activity as tolerated Diet: diabetic diet, low salt diet
[2019-08-03 13:22] VITALS: BP 107/65
== END 2019-08-03 14:52 | disposition home or self-care (01) ==
LOC: 3BNU 11:37 → EMEROOARM 11:37 → 3BNU 15:36
PROVIDERS: ADMIT Internal Medicine; ATTEND Internal Medicine

== ENCOUNTER 2020-08-06 22:57 | Inpatient (IN) ==
[2020-08-06] MEDS ORDERED: methylPREDNISolone 125 MG/2 ML VIAL IVP ONE (23:44)
[2020-08-06] MEDS ORDERED: Isovue-370 500 ML BOTTLE IVP ONE (23:44)
[2020-08-06] MEDS ORDERED: Ipratropium/Albuterol Neb 3 ML IH ONE (23:44)
[2020-08-07 00:39] LABS: Basophils # 0.1 K/mcL (0.0-0.2); Basophils % 0.5 %; Eosinophils % 0.2 %; Hematocrit 43.2 % (37.5-50.1); Hemoglobin 13.5 g/dL (12.9-16.9); Immature Granulocytes % 0.6 % (0-4); Lymphocytes # 0.6 K/mcL (0.6-4.6); Lymphocytes % 5.2 %; Mean Corpuscular HGB Conc 31.3 g/dL (31.6-35.5); Mean Corpuscular Hemoglobin 29.4 pg (28.0-33.3); Mean Corpuscular Volume 94.1 fL (83.0-100.0); Mean Platelet Volume 10.6 fL (9.4-12.4); Monocytes # 0.8 K/mcL (0.0-1.3); Monocytes % 6.8 %; Platelet Count 170 K/mcL (140-400); Red Blood Count 4.59 M/mcL (4.19-5.50); Red Cell Distribution Width 13.5 % (11.5-14.5); Segmented Neutrophils % 86.7 %; White Blood Count 11.5 K/mcL (4.3-11.1)
[2020-08-07 00:51] LABS: Bilirubin,Urine Negative (Negative); Blood,Urine Trace (Negative); Clarity,Urine Clear (Clear); Color,Urine Light-Yellow (Yellow); Glucose,Urine (UA) 500 mg/dL (Normal); Hyaline Casts,Urine Few per lpf (None Seen); Ketones,Urine Negative (Negative); Leukocyte Esterase,Urine Negative (Negative); Mucus,Urine Few per lpf (None-Few); Nitrite,Urine Negative (Negative); Protein,Urine 50 mg/dL (Neg-Trace); RBC,Urine 0-3 per hpf (0-3); Specific Gravity,Urine 1.016 (1.010-1.025); Urobilinogen,Urine Normal (Normal)
[2020-08-07 00:53] LABS: Calcium 9.2 mg/dL (8.6-10.3); Potassium 5.1 mEq/L (3.5-5.1)
[2020-08-07 00:57] LABS: Troponin I 0.06 ng/mL (< 0.04)
[2020-08-07 02:21] LABS: Adenovirus Not Detected (Not Detect); Bordetella Pertussis Not Detected (Not Detect); Chlamydophila pneumoniae Not Detected (Not Detect); Coronavirus 229E Not Detected (Not Detect); Coronavirus HKU1 Not Detected (Not Detect); Coronavirus NL63 Not Detected (Not Detect); Coronavirus OC43 Not Detected (Not Detect); Human Metapneumovirus Not Detected (Not Detect); Human Rhinovirus/Enterovirus DETECTED (Not Detect); Influenza A Subtype 2009 H1 Not Detected (Not Detect); Influenza B Not Detected (Not Detect); Mycoplasma pneumoniae Not Detected (Not Detect); Parainfluenza Virus 1 Not Detected (Not Detect); Parainfluenza Virus 2 Not Detected (Not Detect); Parainfluenza Virus 3 Not Detected (Not Detect); Parainfluenza Virus 4 Not Detected (Not Detect); Respiratory Syncytial Virus Not Detected (Not Detect); SARS-CoV-2 Not Detected (Not Detect)
[2020-08-07] MEDS ORDERED: *HR* Heparin 5,000 UNIT/ML VIAL IVP PRN ×2 (03:03)
[2020-08-07] MEDS ORDERED: *HR* Heparin 5,000 UNIT/ML VIAL IVP ONE (03:03)
[2020-08-07] MEDS ORDERED: *HR* Promethazine 25 MG/ML VIAL IVP PRN (03:53)
[2020-08-07] MEDS ORDERED: Naloxone 0.4 MG/ML INJ IVP PRN ×2 (03:53→03:55)
[2020-08-07] MEDS ORDERED: Acetaminophen 325 MG TABLET PO PRN (03:53)
[2020-08-07] MEDS ORDERED: Perflutren Lipid Microsphere 1.3 ML in 0.9 % Sodium Chloride 8.7 ML IVP PRN (03:55)
[2020-08-07] MEDS ORDERED: *HR* Dextrose 50 % in Water (Vial) 50 ML VIAL IVP PRN (04:48)
[2020-08-07] MEDS ORDERED: D5% in Water 1,000 ML IVC PRN (04:48)
[2020-08-07] MEDS ORDERED: Dextrose Gel 15 GM/37.5 ML TUBE PO PRN ×2 (04:48)
[2020-08-07] MEDS ORDERED: Ipratropium/Albuterol Neb 3 ML IH PRN (04:54)
[2020-08-07] MEDS: Doxycycline 100 MG in 0.9 % Sodium Chloride Mini Bag 100 ML IVPB SCH ×2 (05:37→17:25)
[2020-08-07] MEDS: Heparin 25,000UNIT/250ML 1/2NS 25,000 UNIT/250 ML IV.SOLN IVC SCH (05:44)
[2020-08-07 06:10] LABS: Basophils % 0.3 %; Hematocrit 40.2 % (37.5-50.1); Hemoglobin 12.7 g/dL (12.9-16.9); Immature Granulocytes % 0.5 % (0-4); Lymphocytes # 0.5 K/mcL (0.6-4.6); Lymphocytes % 5.3 %; Mean Corpuscular HGB Conc 31.6 g/dL (31.6-35.5); Mean Corpuscular Hemoglobin 29.5 pg (28.0-33.3); Mean Corpuscular Volume 93.3 fL (83.0-100.0); Mean Platelet Volume 10.2 fL (9.4-12.4); Monocytes # 0.2 K/mcL (0.0-1.3); Monocytes % 1.8 %; Neutrophils # 8.8 K/mcL (1.6-8.9); Platelet Count 134 K/mcL (140-400); Red Blood Count 4.31 M/mcL (4.19-5.50); Red Cell Distribution Width 13.4 % (11.5-14.5); Segmented Neutrophils % 92.1 %; White Blood Count 9.6 K/mcL (4.3-11.1)
[2020-08-07 06:19] LABS: Heparin anti-factor XA UFH < 0.04 IU/mL (0.30-0.70)
[2020-08-07 06:20] LABS: INR 1.2; Prothrombin Time 13.1 Seconds (9.4-12.1)
[2020-08-07 06:34] LABS: Albumin 4.1 g/dL (3.5-5.7); Albumin/Globulin Ratio 1.6 (1.1-2.2); Bilirubin,Total 0.4 mg/dL (0.3-1.0); Calcium 9.3 mg/dL (8.6-10.3); Chol/HDL Ratio 3.2 (0-4.9); Globulin 2.6 g/dL (2.4-3.5); Magnesium 1.4 mg/dL (1.6-2.6); Phosphorous 3.3 mg/dL (2.7-4.5); Potassium 4.8 mEq/L (3.5-5.1); Total Protein 6.7 g/dL (6.4-8.9); Troponin I 0.1 ng/mL (< 0.04)
[2020-08-07 06:36] LABS: Thyroid Stimulating Hormone 2.093 mcIU/mL (0.340-5.600)
[2020-08-07 07:07] LABS: Estimated Average Glucose 180 mg/dl
[2020-08-07] MEDS: Insulin LISPRO 300 UNITS/3 ML VIAL SQ SCH ×3 (09:16→18:37)
[2020-08-07] MEDS: Ipratropium/Albuterol Neb 3 ML IH SCH ×4 (13:01→23:55)
[2020-08-07] MEDS ORDERED: methylPREDNISolone 125 MG/2 ML VIAL IVP ONE ×2 (13:51→16:00)
[2020-08-07] MEDS: Aspirin Enteric Coated 81 MG Tablet PO SCH (15:38)
[2020-08-07] MEDS: MethylPREDNISolone 40 MG/ML VIAL IVP SCH (23:58)
[2020-08-08] MEDS: Ipratropium/Albuterol Neb 3 ML IH SCH ×6 (03:40→23:14)
[2020-08-08] MEDS ORDERED: Insulin LISPRO 300 UNITS/3 ML VIAL SQ SCH ×2 (06:07→21:00)
[2020-08-08] MEDS: Doxycycline 100 MG in 0.9 % Sodium Chloride Mini Bag 100 ML IVPB SCH (06:18)
[2020-08-08 06:49] LABS: Basophils % 0.2 %; Hematocrit 39.5 % (37.5-50.1); Hemoglobin 12.3 g/dL (12.9-16.9); Immature Granulocytes % 1.1 % (0-4); Lymphocytes # 0.7 K/mcL (0.6-4.6); Lymphocytes % 6.4 %; Mean Corpuscular HGB Conc 31.1 g/dL (31.6-35.5); Mean Corpuscular Hemoglobin 29.7 pg (28.0-33.3); Mean Corpuscular Volume 95.4 fL (83.0-100.0); Mean Platelet Volume 10.7 fL (9.4-12.4); Monocytes # 0.6 K/mcL (0.0-1.3); Neutrophils # 9.7 K/mcL (1.6-8.9); Platelet Count 147 K/mcL (140-400); Red Blood Count 4.14 M/mcL (4.19-5.50); Red Cell Distribution Width 13.8 % (11.5-14.5); Segmented Neutrophils % 87.3 %; White Blood Count 11.1 K/mcL (4.3-11.1)
[2020-08-08 07:08] LABS: Calcium 8.9 mg/dL (8.6-10.3); Potassium 4.3 mEq/L (3.5-5.1)
[2020-08-08] MEDS ORDERED: lisinopriL 20 MG TABLET PO SCH (09:00)
[2020-08-08] MEDS: Aspirin Enteric Coated 81 MG Tablet PO SCH (09:36)
[2020-08-08] MEDS: MethylPREDNISolone 40 MG/ML VIAL IVP SCH ×2 (09:36→17:18)
[2020-08-08] MEDS: Insulin LISPRO 300 UNITS/3 ML VIAL SQ SCH ×2 (12:14→17:33)
[2020-08-08] MEDS: Heparin 25,000UNIT/250ML 1/2NS 25,000 UNIT/250 ML IV.SOLN IVC SCH (20:11)
[2020-08-08] MEDS ORDERED: Insulin DETEMIR 100 UNIT/ML X5UNITS SQ SCH (21:00)
[2020-08-08] MEDS: Doxycycline 100 MG CAPSULE PO SCH (21:42)
[2020-08-09 02:54] LABS: Calcium 8.7 mg/dL (8.6-10.3); Potassium 3.5 mEq/L (3.5-5.1)
[2020-08-09] MEDS: Ipratropium/Albuterol Neb 3 ML IH SCH ×4 (03:58→15:21)
[2020-08-09] MEDS: Heparin 25,000UNIT/250ML 1/2NS 25,000 UNIT/250 ML IV.SOLN IVC SCH (05:13)
[2020-08-09] MEDS: Insulin LISPRO 300 UNITS/3 ML VIAL SQ SCH ×3 (08:11→17:09)
[2020-08-09] MEDS: Doxycycline 100 MG CAPSULE PO SCH (08:12)
[2020-08-09] MEDS: Aspirin Enteric Coated 81 MG Tablet PO SCH (08:13)
[2020-08-09] MEDS ORDERED: predniSONE 20 MG TABLET PO SCH (09:00)
[2020-08-09] MEDS ORDERED: Ringers Solution, Lactated 1,000 ML IVC ONE (12:08)
[2020-08-09] MEDS ORDERED: 0.9 % Sodium Chloride 1,000 ML IVC ONE (12:14)
[2020-08-09 16:35] LABS: Calcium 8.6 mg/dL (8.6-10.3); Potassium 4.7 mEq/L (3.5-5.1)
[2020-08-09 16:45] VITALS: BP 125/87
[2020-08-09] MEDS ORDERED: Insulin Human Regular 8 UNIT in 0.9 % Sodium Chloride 10 ML IV ONE (17:51)
== END 2020-08-09 19:06 | disposition home or self-care (01) | DRG 866 ==
LOC: CDU 22:57 → EMEROOARM 22:57 → SUATTDRO 08-07 02:50 → CDU 08-07 04:21 → 2ANU 08-07 17:08
PROVIDERS: ADMIT Student in an Organized Health Care Education/Training Program; ATTEND Student in an Organized Health Care Education/Training Program

== ENCOUNTER 2021-09-01 14:45 | Inpatient (IN) ==
[2021-09-01] MEDS ORDERED: 0.9 % Sodium Chloride 1,000 ML IVC ONE ×2 (17:35→22:30)
[2021-09-01 18:12] LABS: Basophils % 0.1 %; Hematocrit 39.8 % (37.5-50.1); Hemoglobin 12.3 g/dL (12.9-16.9); Immature Granulocytes % 1.1 % (0-4); Lymphocytes # 1.2 K/mcL (0.6-4.6); Lymphocytes % 9.8 %; Mean Corpuscular HGB Conc 30.9 g/dL (31.6-35.5); Mean Corpuscular Hemoglobin 29.7 pg (28.0-33.3); Mean Corpuscular Volume 96.1 fL (83.0-100.0); Mean Platelet Volume 9.9 fL (9.4-12.4); Monocytes # 0.6 K/mcL (0.0-1.3); Monocytes % 5.2 %; Neutrophils # 9.8 K/mcL (1.6-8.9); Platelet Count 282 K/mcL (140-400); Red Blood Count 4.14 M/mcL (4.19-5.50); Red Cell Distribution Width 14.7 % (11.5-14.5); Segmented Neutrophils % 83.8 %; White Blood Count 11.7 K/mcL (4.3-11.1)
[2021-09-01 18:19] LABS: INR 1.2
[2021-09-01 18:42] LABS: Influenza A PCR Negative (Negative); Influenza B PCR Negative (Negative); Resp. Syncytial Virus PCR Negative (Negative)
[2021-09-01 18:43] LABS: SARS-CoV-2 by PCR (In House) Negative (Negative)
[2021-09-01 18:47] LABS: Troponin I 0.08 ng/mL (< 0.04)
[2021-09-01 18:48] LABS: Albumin/Globulin Ratio 1.3 (1.1-2.2); Bilirubin,Total 0.2 mg/dL (0.3-1.0); Calcium 9.8 mg/dL (8.6-10.3); Globulin 3.2 g/dL (2.4-3.5); Magnesium 4.5 mg/dL (1.6-2.6); Potassium 7.5 mEq/L (3.5-5.1); Thyroid Stimulating Hormone 1.18 mcIU/mL (0.340-5.600); Total Protein 7.2 g/dL (6.4-8.9)
[2021-09-01] MEDS ORDERED: Insulin Human Regular 10 UNIT in 0.9 % Sodium Chloride 10 ML IV ONE (18:51)
[2021-09-01] MEDS ORDERED: *HR* Dextrose 50 % in Water (Syg) 50 ML SYRINGE IVP ONE (18:51)
[2021-09-01] MEDS ORDERED: Calcium Gluconate 1,000 MG/10 ML VIAL IVP ONE ×2 (18:53→19:54)
[2021-09-01] MEDS ORDERED: Furosemide 40 MG in 0.9 % Sodium Chloride 50 ML IV ONE (18:53)
[2021-09-01] MEDS ORDERED: cefTRIAXone 2,000 MG in Water for inj. (sterile) 20 ML IVP ONE (18:55)
[2021-09-01] MEDS ORDERED: Albuterol 2.5 MG/3 ML NEBULIZER IH ONE (19:03)
[2021-09-01] MEDS ORDERED: SODIUM ZIRCONIUM CYCLOSILICATE 5 GM POWD.PACK PO ONE (19:11)
[2021-09-01 19:26] LABS: VBG HCO3 18 mEq/L (21-27); VBG PCO2 42 mmHg (41-51); VBG PH 7.24 pH Units (7.32-7.42); VBG PO2 105 mmHg (25-50)
[2021-09-01] MEDS: Furosemide 40 MG/4 ML VIAL IVP ONE ×2 (19:28→21:36)
[2021-09-01] MEDS ORDERED: Calcium Gluconate 1gm/50mL 1 GM/50 ML BAG IVPB ONE ×2 (19:30→20:30)
[2021-09-01] MEDS ORDERED: 0.9 % Sodium Chloride 1,000 ML IV ONE (19:53)
[2021-09-01] MEDS: Norepinephrine 4 MG/254 ML IV.SOLN IVC SCH (20:13)
[2021-09-01 20:19] LABS: Basophils % 0.1 %; Hematocrit 32.5 % (37.5-50.1); Immature Granulocytes % 1.2 % (0-4); Lymphocytes # 1.1 K/mcL (0.6-4.6); Lymphocytes % 11.8 %; Mean Corpuscular HGB Conc 31.1 g/dL (31.6-35.5); Mean Corpuscular Hemoglobin 30.1 pg (28.0-33.3); Mean Platelet Volume 10.1 fL (9.4-12.4); Monocytes # 0.3 K/mcL (0.0-1.3); Monocytes % 3.6 %; Neutrophils # 7.9 K/mcL (1.6-8.9); Platelet Count 226 K/mcL (140-400); Red Blood Count 3.35 M/mcL (4.19-5.50); Red Cell Distribution Width 14.7 % (11.5-14.5); Segmented Neutrophils % 83.3 %; White Blood Count 9.5 K/mcL (4.3-11.1)
[2021-09-01 20:20] LABS: Hemoglobin 10.1 g/dL (12.9-16.9)
[2021-09-01] MEDS ORDERED: Ipratropium/Albuterol Neb 3 ML IH ONE (20:34)
[2021-09-01 20:35] LABS: Albumin 3.1 g/dL (3.5-5.7); Albumin/Globulin Ratio 1.3 (1.1-2.2); Bilirubin,Total 0.2 mg/dL (0.3-1.0); Calcium 8.5 mg/dL (8.6-10.3); Globulin 2.4 g/dL (2.4-3.5); Magnesium 3.8 mg/dL (1.6-2.6); Potassium 5.6 mEq/L (3.5-5.1); Total Protein 5.5 g/dL (6.4-8.9)
[2021-09-01 20:55] LABS: Bilirubin,Urine Negative (Negative); Blood,Urine Small (Negative); Clarity,Urine Clear (Clear); Color,Urine Light-Yellow (Yellow); Glucose,Urine (UA) Normal (Normal); Ketones,Urine Negative (Negative); Leukocyte Esterase,Urine Negative (Negative); Nitrite,Urine Negative (Negative); PH,Urine 5.5 pH Units (5.0-8.0); Protein,Urine 50 mg/dL (Neg-Trace); Specific Gravity,Urine 1.018 (1.010-1.025); Urobilinogen,Urine Normal (Normal); WBC,Urine 0-3 per hpf (0-3)
[2021-09-02 01:43] LABS: VBG Ionized Calcium 1.04 mmol/L (1.15-1.35)
[2021-09-02 01:56] LABS: Calcium 8.7 mg/dL (8.6-10.3); Potassium 6.4 mEq/L (3.5-5.1)
[2021-09-02] MEDS ORDERED: Calcium Gluconate 1gm/50mL 1 GM/50 ML BAG IVPB ONE (03:19)
[2021-09-02] MEDS ORDERED: *HR* Dextrose 50 % in Water (Syg) 50 ML SYRINGE IVP ONE (03:21)
[2021-09-02] MEDS ORDERED: Albuterol Neb 7.5 MG, Sodium Chloride for inhalation 12 ML IH ONE (03:22)
[2021-09-02] MEDS ORDERED: Albuterol 2.5 MG/3 ML NEBULIZER IH SCH (03:30)
[2021-09-02] MEDS ORDERED: Insulin Human Regular 10 UNIT in 0.9 % Sodium Chloride 10 ML IV ONE (03:30)
[2021-09-02] MEDS ORDERED: Sodium Chloride for inhalation 3 ML VIAL IH ONE (03:45)
[2021-09-02] MEDS: Sodium Bicarbonate 150 MEQ in D5% in Water 1,000 ML IVC SCH ×2 (05:16→15:07)
[2021-09-02] MEDS ORDERED: WATER FOR INJ IVP SCH (06:00)
[2021-09-02] MEDS ORDERED: AZTREONAM IVP SCH (06:00)
[2021-09-02] MEDS ORDERED: Aztreonam 500 MG in 0.9 % Sodium Chloride 50 ML IVPB SCH (06:00)
[2021-09-02] MEDS: *HR* Heparin 5,000 UNIT/ML VIAL SQ SCH ×3 (06:03→21:24)
[2021-09-02] MEDS: Norepinephrine 4 MG/254 ML IV.SOLN IVC SCH (06:03)
[2021-09-02] MEDS ORDERED: Naloxone 0.4 MG/ML INJ IVP PRN (06:14)
[2021-09-02 06:35] LABS: Basophils % 0.1 %; Hematocrit 33.7 % (37.5-50.1); Hemoglobin 10.2 g/dL (12.9-16.9); Lymphocytes # 0.8 K/mcL (0.6-4.6); Lymphocytes % 5.6 %; Mean Corpuscular HGB Conc 30.3 g/dL (31.6-35.5); Mean Corpuscular Hemoglobin 29.1 pg (28.0-33.3); Mean Corpuscular Volume 96.3 fL (83.0-100.0); Mean Platelet Volume 9.9 fL (9.4-12.4); Monocytes # 1.5 K/mcL (0.0-1.3); Monocytes % 10.7 %; Neutrophils # 11.6 K/mcL (1.6-8.9); Platelet Count 273 K/mcL (140-400); Segmented Neutrophils % 82.6 %; White Blood Count 14.1 K/mcL (4.3-11.1)
[2021-09-02 07:14] LABS: Calcium 8.8 mg/dL (8.6-10.3); Magnesium 3.7 mg/dL (1.6-2.6); Potassium 5.7 mEq/L (3.5-5.1); Troponin I 0.19 ng/mL (< 0.04)
[2021-09-02 08:07] LABS: INR 1.2; Prothrombin Time 13.2 Seconds (9.4-12.1)
[2021-09-02 08:49] LABS: Calcium 8.6 mg/dL (8.6-10.3); Magnesium 3.7 mg/dL (1.6-2.6); Potassium 5.9 mEq/L (3.5-5.1)
[2021-09-02] MEDS: Aspirin Enteric Coated 81 MG Tablet PO SCH (09:11)
[2021-09-02] MEDS ORDERED: 0.9 % Sodium Chloride 250 ML IVC PRN (09:19)
[2021-09-02] MEDS ORDERED: *HR* Heparin 10,000 UNIT/10 ML VIAL IV PRN (09:19)
[2021-09-02] MEDS ORDERED: Albumin 25% 25gram/100mL 25 GM/100 ML IV.SOLN IVPB PRN (09:19)
[2021-09-02] MEDS ORDERED: 0.9 % Sodium Chloride 1,000 ML PRIME SCH (09:30)
[2021-09-02 09:49] LABS: VBG Ionized Calcium 1.09 mmol/L (1.15-1.35)
[2021-09-02] MEDS ORDERED: Heparin 1,000 UNITS/500 mL 0 ML ONE (11:54)
[2021-09-02 13:37] LABS: Hepatitis B Surface Antibody < 3.10 mIU/mL
[2021-09-02 13:51] LABS: Hepatitis B Surface Antigen Nonreactive (Nonreactive)
[2021-09-02] MEDS ORDERED: Albuterol 2.5 MG/3 ML NEBULIZER ONE (15:43)
[2021-09-02] MEDS: cefTRIAXone 1,000 MG in Water for inj. (sterile) 10 ML IVP SCH (18:28)
[2021-09-02 18:54] LABS: Bacteria,Urine Few per hpf (None-Few); Bilirubin,Urine Negative (Negative); Blood,Urine Large (Negative); Clarity,Urine Turbid (Clear); Color,Urine Light-Brown (Yellow); Glucose,Urine (UA) 500 mg/dL (Normal); Ketones,Urine 20 mg/dL (Negative); Leukocyte Esterase,Urine Small (Negative); Nitrite,Urine Negative (Negative); Protein,Urine 70 mg/dL (Neg-Trace); RBC,Urine TNTC per hpf (0-3); Specific Gravity,Urine 1.011 (1.010-1.025); Urobilinogen,Urine Normal (Normal); WBC,Urine 15-30 per hpf (0-3)
[2021-09-02 20:02] LABS: Uric Acid 8.9 mg/dL (2.3-7.6)
[2021-09-02 23:25] LABS: Adenovirus F 40/41 PCR Not detected (Not detect); Astrovirus PCR Not detected (Not detect); C.difficile Toxin A/B Gene PCR Not detected (Not detect); Campylobacter by PCR Not detected (Not detect); Cryptosporidium by PCR Not detected (Not detect); Cyclospora cayetanensis PCR Not detected (Not detect); E. coli O157 by PCR Not detected (Not detect); Entamoeba histolytica PCR Not detected (Not detect); Enteroaggregative E.coli(EAEC) Not detected (Not detect); Enteropathogenic E.coli(EPEC) Not detected (Not detect); Enterotoxigenic E.coli (ETEC) Not detected (Not detect); Giardia lamblia PCR Not detected (Not detect); Norovirus GI/GII PCR Not detected (Not detect); Plesiomonas shigelloides PCR Not detected (Not detect); Rotavirus A PCR Not detected (Not detect); Salmonella PCR Not detected (Not detect); Sapovirus PCR Not detected (Not detect); Shig/EnteroinvasiveE coli EIEC Not detected (Not detect); Shigalike tox-prod E coli STEC Not detected (Not detect); Vibrio PCR Not detected (Not detect); Vibrio cholerae PCR Not detected (Not detect); Yersinia enterocolitica PCR Not detected (Not detect)
[2021-09-03] MEDS: Sodium Bicarbonate 150 MEQ in D5% in Water 1,000 ML IVC SCH ×2 (00:01→08:27)
[2021-09-03 03:42] LABS: Hematocrit 31.1 % (37.5-50.1); Hemoglobin 9.7 g/dL (12.9-16.9); Immature Granulocytes % 0.7 % (0-4); Lymphocytes # 0.4 K/mcL (0.6-4.6); Lymphocytes % 4.6 %; Mean Corpuscular HGB Conc 31.2 g/dL (31.6-35.5); Mean Corpuscular Volume 92.8 fL (83.0-100.0); Mean Platelet Volume 9.5 fL (9.4-12.4); Monocytes # 0.8 K/mcL (0.0-1.3); Monocytes % 9.2 %; Neutrophils # 7.6 K/mcL (1.6-8.9); Platelet Count 198 K/mcL (140-400); Red Blood Count 3.35 M/mcL (4.19-5.50); Red Cell Distribution Width 14.9 % (11.5-14.5); Segmented Neutrophils % 85.5 %; White Blood Count 8.9 K/mcL (4.3-11.1)
[2021-09-03 04:01] LABS: Calcium 7.7 mg/dL (8.6-10.3); Magnesium 2.8 mg/dL (1.6-2.6); Potassium 4.9 mEq/L (3.5-5.1)
[2021-09-03 04:03] LABS: Protein/Creatinine Ratio,Urine 3.19 mg/mg (0.00-0.20); Sodium, Urine 102.4 mEq/L
[2021-09-03] MEDS: *HR* Heparin 5,000 UNIT/ML VIAL SQ SCH ×3 (05:46→22:30)
[2021-09-03] MEDS: Norepinephrine 4 MG/254 ML IV.SOLN IVC SCH ×2 (05:46→05:47)
[2021-09-03] MEDS ORDERED: *HR* Heparin 10,000 UNIT/10 ML VIAL IV PRN (08:15)
[2021-09-03] MEDS ORDERED: 0.9 % Sodium Chloride 250 ML IVC PRN (08:15)
[2021-09-03] MEDS: Aspirin Enteric Coated 81 MG Tablet PO SCH (08:19)
[2021-09-03] MEDS ORDERED: *HR* Dextrose 50 % in Water (Syg) 50 ML SYRINGE IVP PRN (08:33)
[2021-09-03] MEDS ORDERED: D5% in Water 1,000 ML IVC PRN (08:33)
[2021-09-03] MEDS ORDERED: Dextrose Gel 15 GM/37.5 ML TUBE PO PRN ×2 (08:33)
[2021-09-03] MEDS: Calcium Gluconate 1gm/50mL 1 GM/50 ML BAG IVPB SCH ×2 (09:44→10:38)
[2021-09-03] MEDS: Insulin LISPRO 300 UNITS/3 ML VIAL SUBQ SCH ×4 (09:55→22:30)
[2021-09-03 11:00] LABS: Complement C3 101 mg/dL (87-200)
[2021-09-03] MEDS: 0.9 % Sodium Chloride 250 ML IVC SCH (14:33)
[2021-09-03] MEDS: cefTRIAXone 1,000 MG in Water for inj. (sterile) 10 ML IVP SCH (16:45)
[2021-09-03] MEDS ORDERED: Perflutren Lipid Microsphere 1.3 ML in 0.9 % Sodium Chloride 8.7 ML IVP PRN (17:02)
[2021-09-03 17:42] LABS: Appearance of Pleural Fl Clear (Clear); RBC,Pleural Fluid 2000 RBC/mcL
[2021-09-03 17:46] LABS: Total Protein,Pleural Fluid 4.4 g/dL
[2021-09-03 18:30] LABS: Lactate Dehydrogenase 150 Units/L (140-271); Total Protein 5.6 g/dL (6.4-8.9)
[2021-09-03 18:32] LABS: Troponin I 0.57 ng/mL (< 0.04)
[2021-09-03 18:33] LABS: Basophils,Pleural Fluid 0 %; Eosinophils,Pleural Fluid 0 %
[2021-09-03] MEDS ORDERED: Insulin LISPRO 300 UNITS/3 ML VIAL SUBQ SCH (21:00)
[2021-09-04] MEDS: *HR* Heparin 5,000 UNIT/ML VIAL SQ SCH (06:43)
[2021-09-04] MEDS: Norepinephrine 4 MG/254 ML IV.SOLN IVC SCH ×4 (08:27→14:32)
[2021-09-04] MEDS: 0.9 % Sodium Chloride 250 ML IVC SCH ×3 (08:28→16:00)
[2021-09-04] MEDS: Aspirin Enteric Coated 81 MG Tablet PO SCH (09:28)
[2021-09-04] MEDS: Insulin LISPRO 300 UNITS/3 ML VIAL SUBQ SCH ×4 (09:29→22:00)
[2021-09-04 10:02] LABS: Hematocrit 33.6 % (37.5-50.1); Hemoglobin 10.8 g/dL (12.9-16.9); Mean Corpuscular HGB Conc 32.1 g/dL (31.6-35.5); Mean Corpuscular Hemoglobin 30.2 pg (28.0-33.3); Mean Corpuscular Volume 93.9 fL (83.0-100.0); Mean Platelet Volume 9.8 fL (9.4-12.4); Platelet Count 193 K/mcL (140-400); Red Blood Count 3.58 M/mcL (4.19-5.50); Red Cell Distribution Width 14.6 % (11.5-14.5); White Blood Count 9.9 K/mcL (4.3-11.1)
[2021-09-04 10:18] LABS: Calcium 8.4 mg/dL (8.6-10.3); Potassium 4.2 mEq/L (3.5-5.1)
[2021-09-04] MEDS: Apixaban 2.5 MG TABLET PO SCH ×2 (15:00→21:01)
[2021-09-04] MEDS: cefTRIAXone 1,000 MG in Water for inj. (sterile) 10 ML IVP SCH (16:27)
[2021-09-04] MEDS ORDERED: Albumin 25% 25gram/100mL 25 GM/100 ML IV.SOLN ONE (22:57)
[2021-09-05] MEDS: 0.9 % Sodium Chloride 250 ML IVC SCH ×3 (04:12→23:44)
[2021-09-05 06:06] LABS: Calcium 8.1 mg/dL (8.6-10.3); Potassium 3.8 mEq/L (3.5-5.1)
[2021-09-05 06:18] LABS: Basophils % 0.1 %; Eosinophils % 0.2 %; Hematocrit 29.7 % (37.5-50.1); Hemoglobin 9.4 g/dL (12.9-16.9); Lymphocytes # 0.7 K/mcL (0.6-4.6); Lymphocytes % 8.1 %; Mean Corpuscular HGB Conc 31.6 g/dL (31.6-35.5); Mean Corpuscular Hemoglobin 29.6 pg (28.0-33.3); Mean Corpuscular Volume 93.4 fL (83.0-100.0); Mean Platelet Volume 10.2 fL (9.4-12.4); Monocytes # 0.8 K/mcL (0.0-1.3); Neutrophils # 6.8 K/mcL (1.6-8.9); Platelet Count 181 K/mcL (140-400); Red Blood Count 3.18 M/mcL (4.19-5.50); Red Cell Distribution Width 14.6 % (11.5-14.5); Segmented Neutrophils % 81.6 %; White Blood Count 8.3 K/mcL (4.3-11.1)
[2021-09-05 06:28] LABS: INR 1.5; Prothrombin Time 16.6 Seconds (9.4-12.1)
[2021-09-05] MEDS: Norepinephrine 4 MG/254 ML IV.SOLN IVC SCH (06:50)
[2021-09-05] MEDS ORDERED: Albumin 25% 25gram/100mL 25 GM/100 ML IV.SOLN IVPB ONE (08:00)
[2021-09-05] MEDS: Aspirin Enteric Coated 81 MG Tablet PO SCH (08:13)
[2021-09-05] MEDS: Apixaban 2.5 MG TABLET PO SCH ×2 (08:14→20:51)
[2021-09-05] MEDS: Insulin LISPRO 300 UNITS/3 ML VIAL SUBQ SCH ×4 (08:18→20:45)
[2021-09-05] MEDS ORDERED: 0.9 % Sodium Chloride 250 ML IVC PRN (08:28)
[2021-09-05] MEDS ORDERED: *HR* Heparin 10,000 UNIT/10 ML VIAL IV PRN (08:28)
[2021-09-05 13:14] LABS: Hematocrit 27.2 % (37.5-50.1); Hemoglobin 8.8 g/dL (12.9-16.9); Mean Corpuscular HGB Conc 32.4 g/dL (31.6-35.5); Mean Corpuscular Hemoglobin 29.9 pg (28.0-33.3); Mean Corpuscular Volume 92.5 fL (83.0-100.0); Mean Platelet Volume 9.8 fL (9.4-12.4); Platelet Count 186 K/mcL (140-400); Red Blood Count 2.94 M/mcL (4.19-5.50); Red Cell Distribution Width 14.5 % (11.5-14.5); White Blood Count 9.4 K/mcL (4.3-11.1)
[2021-09-05] MEDS: Albumin 25% 25gram/100mL 25 GM/100 ML IV.SOLN IVPB SCH ×2 (14:56→23:41)
[2021-09-05 16:01] LABS: Lambda Qnt Free Light Chains 39.05 mg/L (5.71-26.30)
[2021-09-05] MEDS: cefTRIAXone 1,000 MG in Water for inj. (sterile) 10 ML IVP SCH (16:14)
[2021-09-05 16:27] LABS: Kappa Qnt Free Light Chains 129.57 mg/L (3.30-19.40)
[2021-09-05 17:59] LABS: Basophils % 0.1 %; Eosinophils % 0.3 %; Hematocrit 26.1 % (37.5-50.1); Hemoglobin 8.3 g/dL (12.9-16.9); Immature Granulocytes % 1.6 % (0-4); Lymphocytes # 0.7 K/mcL (0.6-4.6); Lymphocytes % 7.7 %; Mean Corpuscular HGB Conc 31.8 g/dL (31.6-35.5); Mean Corpuscular Volume 94.2 fL (83.0-100.0); Mean Platelet Volume 9.3 fL (9.4-12.4); Monocytes # 0.8 K/mcL (0.0-1.3); Monocytes % 8.4 %; Neutrophils # 7.3 K/mcL (1.6-8.9); Platelet Count 162 K/mcL (140-400); Red Blood Count 2.77 M/mcL (4.19-5.50); Red Cell Distribution Width 14.5 % (11.5-14.5); Segmented Neutrophils % 81.9 %; White Blood Count 8.9 K/mcL (4.3-11.1)
[2021-09-06 03:27] LABS: Basophils % 0.4 %; Eosinophils # 0.1 K/mcL (0.0-0.6); Eosinophils % 0.8 %; Hematocrit 24.6 % (37.5-50.1); Hemoglobin 7.6 g/dL (12.9-16.9); Immature Granulocytes % 1.6 % (0-4); Lymphocytes # 0.7 K/mcL (0.6-4.6); Mean Corpuscular HGB Conc 30.9 g/dL (31.6-35.5); Mean Corpuscular Volume 93.9 fL (83.0-100.0); Mean Platelet Volume 9.3 fL (9.4-12.4); Monocytes # 0.6 K/mcL (0.0-1.3); Monocytes % 8.5 %; Neutrophils # 5.9 K/mcL (1.6-8.9); Platelet Count 153 K/mcL (140-400); Red Blood Count 2.62 M/mcL (4.19-5.50); Red Cell Distribution Width 14.6 % (11.5-14.5); Segmented Neutrophils % 79.7 %; White Blood Count 7.4 K/mcL (4.3-11.1)
[2021-09-06 03:45] LABS: Magnesium 1.9 mg/dL (1.6-2.6); Potassium 3.2 mEq/L (3.5-5.1)
[2021-09-06] MEDS ORDERED: Potassium Chloride 40 MEQ, Lidocaine 1% 2 ML in 0.9 % Sodium Chloride 500 ML IVPB ONE (07:22)
[2021-09-06] MEDS: Albumin 25% 25gram/100mL 25 GM/100 ML IV.SOLN IVPB SCH ×2 (08:03→16:20)
[2021-09-06] MEDS: Insulin LISPRO 300 UNITS/3 ML VIAL SUBQ SCH ×4 (08:42→21:03)
[2021-09-06 09:30] LABS: Hematocrit 24.6 % (37.5-50.1); Hemoglobin 7.8 g/dL (12.9-16.9); Mean Corpuscular HGB Conc 31.7 g/dL (31.6-35.5); Mean Corpuscular Volume 94.6 fL (83.0-100.0); Mean Platelet Volume 9.7 fL (9.4-12.4); Platelet Count 161 K/mcL (140-400); Red Cell Distribution Width 14.6 % (11.5-14.5); White Blood Count 8.9 K/mcL (4.3-11.1)
[2021-09-06] MEDS: Aspirin Enteric Coated 81 MG Tablet PO SCH (09:45)
[2021-09-06] MEDS: Apixaban 2.5 MG TABLET PO SCH ×2 (09:46→20:02)
[2021-09-06] MEDS: 0.9 % Sodium Chloride 250 ML IVC SCH ×2 (13:39→21:02)
[2021-09-06 15:04] LABS: Hematocrit 24.6 % (37.5-50.1); Hemoglobin 7.8 g/dL (12.9-16.9); Mean Corpuscular HGB Conc 31.7 g/dL (31.6-35.5); Mean Corpuscular Hemoglobin 29.4 pg (28.0-33.3); Mean Corpuscular Volume 92.8 fL (83.0-100.0); Mean Platelet Volume 9.1 fL (9.4-12.4); Platelet Count 168 K/mcL (140-400); Red Blood Count 2.65 M/mcL (4.19-5.50); Red Cell Distribution Width 14.4 % (11.5-14.5); White Blood Count 9.4 K/mcL (4.3-11.1)
[2021-09-06] MEDS: cefTRIAXone 1,000 MG in Water for inj. (sterile) 10 ML IVP SCH (18:09)
[2021-09-06] MEDS: Norepinephrine 4 MG/254 ML IV.SOLN IVC SCH ×4 (20:55→20:58)
[2021-09-07] MEDS: Norepinephrine 4 MG/254 ML IV.SOLN IVC SCH ×2 (03:07→07:58)
[2021-09-07 04:09] LABS: Basophils % 0.2 %; Eosinophils # 0.1 K/mcL (0.0-0.6); Eosinophils % 0.6 %; Hematocrit 23.5 % (37.5-50.1); Hemoglobin 7.7 g/dL (12.9-16.9); Immature Granulocytes % 1.6 % (0-4); Lymphocytes # 0.6 K/mcL (0.6-4.6); Lymphocytes % 5.9 %; Mean Corpuscular HGB Conc 32.8 g/dL (31.6-35.5); Mean Corpuscular Hemoglobin 30.3 pg (28.0-33.3); Mean Corpuscular Volume 92.5 fL (83.0-100.0); Mean Platelet Volume 9.4 fL (9.4-12.4); Monocytes # 0.8 K/mcL (0.0-1.3); Monocytes % 8.4 %; Neutrophils # 7.9 K/mcL (1.6-8.9); Platelet Count 159 K/mcL (140-400); Red Blood Count 2.54 M/mcL (4.19-5.50); Red Cell Distribution Width 14.1 % (11.5-14.5); Segmented Neutrophils % 83.3 %; White Blood Count 9.5 K/mcL (4.3-11.1)
[2021-09-07 04:26] LABS: Calcium 8.1 mg/dL (8.6-10.3); Magnesium 1.4 mg/dL (1.6-2.6); Potassium 3.2 mEq/L (3.5-5.1)
[2021-09-07] MEDS: 0.9 % Sodium Chloride 250 ML IVC SCH (05:28)
[2021-09-07] MEDS: Aspirin Enteric Coated 81 MG Tablet PO SCH (08:39)
[2021-09-07] MEDS: Apixaban 2.5 MG TABLET PO SCH ×2 (08:39→20:46)
[2021-09-07] MEDS: Insulin LISPRO 300 UNITS/3 ML VIAL SUBQ SCH ×4 (08:40→20:46)
[2021-09-07] MEDS: cefTRIAXone 1,000 MG in Water for inj. (sterile) 10 ML IVP SCH (17:31)
[2021-09-07 23:37] LABS: Alpha 2 Globulin (PEP) 0.84 g/dL (0.48-1.05); Beta Globulin (PEP) 0.68 g/dL (0.48-1.10)
[2021-09-08 04:38] LABS: Basophils % 0.3 %; Eosinophils # 0.1 K/mcL (0.0-0.6); Eosinophils % 0.9 %; Hematocrit 24.1 % (37.5-50.1); Hemoglobin 7.8 g/dL (12.9-16.9); Immature Granulocytes % 1.6 % (0-4); Lymphocytes # 0.9 K/mcL (0.6-4.6); Lymphocytes % 7.3 %; Mean Corpuscular HGB Conc 32.4 g/dL (31.6-35.5); Mean Corpuscular Hemoglobin 30.2 pg (28.0-33.3); Mean Corpuscular Volume 93.4 fL (83.0-100.0); Mean Platelet Volume 9.5 fL (9.4-12.4); Monocytes % 8.1 %; Neutrophils # 9.6 K/mcL (1.6-8.9); Platelet Count 188 K/mcL (140-400); Red Blood Count 2.58 M/mcL (4.19-5.50); Red Cell Distribution Width 14.1 % (11.5-14.5); Segmented Neutrophils % 81.8 %; White Blood Count 11.7 K/mcL (4.3-11.1)
[2021-09-08 04:53] LABS: Calcium 8.1 mg/dL (8.6-10.3); Potassium 3.3 mEq/L (3.5-5.1)
[2021-09-08] MEDS: Apixaban 2.5 MG TABLET PO SCH ×2 (07:56→20:12)
[2021-09-08] MEDS: Aspirin Enteric Coated 81 MG Tablet PO SCH (07:56)
[2021-09-08] MEDS: Insulin LISPRO 300 UNITS/3 ML VIAL SUBQ SCH ×4 (07:56→20:07)
[2021-09-08 10:57] LABS: Immunoglobulin A 318 mg/dL (68-408); Immunoglobulin G 515 mg/dL (768-1632); Immunoglobulin M 38 mg/dL (35-263)
[2021-09-08 10:58] LABS: IFE Reflexed IFE Done
[2021-09-08 11:14] LABS: ANCA IFA Titer <1:20 (<1:20)
[2021-09-08 12:25] LABS: Serine Protease-3 Antibody 1 AU/mL (0-19)
[2021-09-08 12:26] LABS: ANCA IFA Pattern NONE DETECTED (None Detected)
[2021-09-08] MEDS: Mag Hydrox/Al Hydrox/Simeth 30 ML UDC PO PRN (18:10)
[2021-09-09] MEDS: Apixaban 2.5 MG TABLET PO SCH ×2 (08:18→21:15)
[2021-09-09] MEDS: Aspirin Enteric Coated 81 MG Tablet PO SCH (08:18)
[2021-09-09] MEDS: Insulin LISPRO 300 UNITS/3 ML VIAL SUBQ SCH ×4 (08:19→21:08)
[2021-09-09 09:27] LABS: Calcium 8.2 mg/dL (8.6-10.3); Potassium 3.8 mEq/L (3.5-5.1)
[2021-09-10] MEDS: Apixaban 2.5 MG TABLET PO SCH ×2 (07:07→20:59)
[2021-09-10] MEDS: Aspirin Enteric Coated 81 MG Tablet PO SCH (07:08)
[2021-09-10] MEDS: Insulin LISPRO 300 UNITS/3 ML VIAL SUBQ SCH ×4 (07:11→19:40)
[2021-09-11] MEDS: Apixaban 2.5 MG TABLET PO SCH ×2 (08:20→20:08)
[2021-09-11] MEDS: Aspirin Enteric Coated 81 MG Tablet PO SCH (08:20)
[2021-09-11] MEDS: Insulin LISPRO 300 UNITS/3 ML VIAL SUBQ SCH ×4 (08:20→20:09)
[2021-09-12 05:35] LABS: Basophils % 0.2 %; Eosinophils # 0.1 K/mcL (0.0-0.6); Eosinophils % 0.5 %; Hemoglobin 8.1 g/dL (12.9-16.9); Immature Granulocytes % 1.7 % (0-4); Lymphocytes # 0.9 K/mcL (0.6-4.6); Lymphocytes % 6.9 %; Mean Corpuscular HGB Conc 31.2 g/dL (31.6-35.5); Mean Corpuscular Hemoglobin 29.3 pg (28.0-33.3); Mean Corpuscular Volume 94.2 fL (83.0-100.0); Mean Platelet Volume 9.4 fL (9.4-12.4); Monocytes # 0.7 K/mcL (0.0-1.3); Monocytes % 5.3 %; Neutrophils # 11.3 K/mcL (1.6-8.9); Platelet Count 249 K/mcL (140-400); Red Blood Count 2.76 M/mcL (4.19-5.50); Red Cell Distribution Width 15.5 % (11.5-14.5); Segmented Neutrophils % 85.4 %; White Blood Count 13.3 K/mcL (4.3-11.1)
[2021-09-12 05:54] LABS: BUN/Creatinine Ratio 25 (6-26); Blood Urea Nitrogen 33 mg/dL (8-23); Calcium 8.3 mg/dL (8.6-10.3); Carbon Dioxide 20 mEq/L (23-29); Chloride 99 mEq/L (98-107); Glucose 173 mg/dL (70-105); Osmolality,Calculated 293 (280-300); Potassium 3.7 mEq/L (3.5-5.1); Sodium 136 mEq/L (136-145); eGFR For African Americans > 60 (> 60); eGFR For Non-African Americans 51 (> 60)
[2021-09-12] MEDS: Aspirin Enteric Coated 81 MG Tablet PO SCH (10:33)
[2021-09-12] MEDS: Insulin LISPRO 300 UNITS/3 ML VIAL SUBQ SCH ×4 (10:33→21:34)
[2021-09-12] MEDS: Apixaban 2.5 MG TABLET PO SCH ×2 (10:33→21:34)
[2021-09-13 05:12] LABS: Basophils % 0.3 %; Eosinophils # 0.1 K/mcL (0.0-0.6); Eosinophils % 0.9 %; Hematocrit 26.3 % (37.5-50.1); Hemoglobin 8.1 g/dL (12.9-16.9); Immature Granulocytes % 1.8 % (0-4); Lymphocytes # 0.8 K/mcL (0.6-4.6); Lymphocytes % 5.8 %; Mean Corpuscular HGB Conc 30.8 g/dL (31.6-35.5); Mean Corpuscular Hemoglobin 29.2 pg (28.0-33.3); Mean Corpuscular Volume 94.9 fL (83.0-100.0); Mean Platelet Volume 9.3 fL (9.4-12.4); Monocytes # 0.6 K/mcL (0.0-1.3); Monocytes % 4.6 %; Neutrophils # 11.2 K/mcL (1.6-8.9); Platelet Count 239 K/mcL (140-400); Red Blood Count 2.77 M/mcL (4.19-5.50); Red Cell Distribution Width 15.5 % (11.5-14.5); Segmented Neutrophils % 86.6 %; White Blood Count 12.9 K/mcL (4.3-11.1)
[2021-09-13 05:38] LABS: BUN/Creatinine Ratio 25 (6-26); Blood Urea Nitrogen 33 mg/dL (8-23); Calcium 8.2 mg/dL (8.6-10.3); Carbon Dioxide 22 mEq/L (23-29); Chloride 98 mEq/L (98-107); Glucose 186 mg/dL (70-105); Osmolality,Calculated 290 (280-300); Potassium 3.6 mEq/L (3.5-5.1); Sodium 134 mEq/L (136-145); eGFR For African Americans > 60 (> 60); eGFR For Non-African Americans 51 (> 60)
[2021-09-13] MEDS: Aspirin Enteric Coated 81 MG Tablet PO SCH (07:56)
[2021-09-13] MEDS: Apixaban 2.5 MG TABLET PO SCH ×2 (07:57→21:42)
[2021-09-13] MEDS: Insulin LISPRO 300 UNITS/3 ML VIAL SUBQ SCH ×4 (07:57→21:42)
[2021-09-14 05:47] LABS: Basophils % 0.3 %; Eosinophils % 0.3 %; Hematocrit 28.2 % (37.5-50.1); Hemoglobin 8.6 g/dL (12.9-16.9); Immature Granulocytes % 2.1 % (0-4); Lymphocytes # 0.6 K/mcL (0.6-4.6); Lymphocytes % 5.4 %; Mean Corpuscular HGB Conc 30.5 g/dL (31.6-35.5); Mean Corpuscular Hemoglobin 28.9 pg (28.0-33.3); Mean Corpuscular Volume 94.6 fL (83.0-100.0); Mean Platelet Volume 9.5 fL (9.4-12.4); Monocytes # 0.5 K/mcL (0.0-1.3); Monocytes % 3.9 %; Neutrophils # 10.4 K/mcL (1.6-8.9); Platelet Count 295 K/mcL (140-400); Red Blood Count 2.98 M/mcL (4.19-5.50); Red Cell Distribution Width 15.8 % (11.5-14.5); White Blood Count 11.9 K/mcL (4.3-11.1)
[2021-09-14 06:03] LABS: BUN/Creatinine Ratio 23 (6-26); Blood Urea Nitrogen 29 mg/dL (8-23); Calcium 8.4 mg/dL (8.6-10.3); Carbon Dioxide 22 mEq/L (23-29); Chloride 97 mEq/L (98-107); Glucose 193 mg/dL (70-105); Osmolality,Calculated 289 (280-300); Sodium 134 mEq/L (136-145); eGFR For African Americans > 60 (> 60); eGFR For Non-African Americans 53 (> 60)
[2021-09-14] MEDS: Aspirin Enteric Coated 81 MG Tablet PO SCH (09:18)
[2021-09-14] MEDS: Apixaban 2.5 MG TABLET PO SCH (09:18)
[2021-09-14] MEDS: Insulin LISPRO 300 UNITS/3 ML VIAL SUBQ SCH ×3 (09:19→17:16)
[2021-09-14] MEDS: Mag Hydrox/Al Hydrox/Simeth 30 ML UDC PO PRN (14:44)
[2021-09-14 16:20] LABS: Influenza A PCR Negative (Negative); Influenza B PCR Negative (Negative); Resp. Syncytial Virus PCR Negative (Negative); SARS-CoV-2 by PCR (In House) Negative (Negative)
[2021-09-14 19:21] VITALS: BP 98/69; PULSE 100; TEMP 97.8; O2SAT 93
== END 2021-09-14 21:05 | DRG 180 ==
LOC: 2NNU 14:45 → EMEROOARM 14:45 → 2NNU 09-02 00:45 → SUATTDRO 09-02 06:14 → 2NNU 09-02 19:14 → 2NENU 09-04 20:49 → 2NNU 09-05 05:14 → 3NENU 09-08 16:27
PROVIDERS: ADMIT Family Medicine; ATTEND Internal Medicine

== ENCOUNTER 2021-10-19 15:14 | Inpatient (IN) ==
[2021-10-19] MEDS ORDERED: *HR* Dextrose 50 % in Water (Syg) 50 ML SYRINGE ONE ×3 (15:32→19:54)
[2021-10-19] MEDS ORDERED: *HR* Dextrose 50 % in Water (Vial) 50 ML VIAL IVP ONE ×2 (15:44→20:01)
[2021-10-19 16:48] LABS: VBG HCO3 26 mEq/L (21-27); VBG PCO2 41 mmHg (41-51); VBG PH 7.41 pH Units (7.32-7.42); VBG PO2 52 mmHg (25-50)
[2021-10-19 16:49] LABS: Basophils % 0.4 %; Eosinophils % 0.3 %; Hematocrit 42.2 % (37.5-50.1); Hemoglobin 12.6 g/dL (12.9-16.9); Immature Granulocytes % 0.9 % (0-4); Lymphocytes # 0.8 K/mcL (0.6-4.6); Lymphocytes % 10.3 %; Mean Corpuscular HGB Conc 29.9 g/dL (31.6-35.5); Mean Corpuscular Hemoglobin 26.9 pg (28.0-33.3); Mean Corpuscular Volume 90.2 fL (83.0-100.0); Mean Platelet Volume 9.5 fL (9.4-12.4); Monocytes # 0.3 K/mcL (0.0-1.3); Monocytes % 4.2 %; Neutrophils # 6.7 K/mcL (1.6-8.9); Platelet Count 249 K/mcL (140-400); Red Blood Count 4.68 M/mcL (4.19-5.50); Red Cell Distribution Width 15.9 % (11.5-14.5); Segmented Neutrophils % 83.9 %; White Blood Count 7.9 K/mcL (4.3-11.1)
[2021-10-19 16:56] LABS: INR 1.4; Prothrombin Time 16.1 Seconds (9.4-12.1)
[2021-10-19 16:59] LABS: Activated Partial Thrombo Time 29.9 Seconds (26.0-36.0)
[2021-10-19] MEDS ORDERED: Azithromycin 500 MG in 0.9 % Sodium Chloride 250 ML IVPB ONE (17:13)
[2021-10-19] MEDS ORDERED: cefTRIAXone 1,000 MG in 0.9 % Sodium Chloride Mini Bag 100 ML IVPB ONE (17:13)
[2021-10-19 17:21] LABS: Albumin 3.5 g/dL (3.5-5.7); Albumin/Globulin Ratio 0.9 (1.1-2.2); Bilirubin,Direct 0.1 mg/dL (0.0-0.2); Bilirubin,Indirect 0.4 mg/dL (0.0-1.0); Bilirubin,Total 0.5 mg/dL (0.3-1.0); Calcium 9.5 mg/dL (8.6-10.3); Globulin 3.7 g/dL (2.4-3.5); Magnesium 2.5 mg/dL (1.6-2.6); Phosphorous 4.8 mg/dL (2.7-4.5); Potassium 4.2 mEq/L (3.5-5.1); Total Protein 7.2 g/dL (6.4-8.9); Troponin I 0.09 ng/mL (< 0.04)
[2021-10-19] MEDS ORDERED: Aspirin 81 MG TAB.CHEW PO STA (18:48)
[2021-10-19] MEDS ORDERED: 0.9 % Sodium Chloride 1,000 ML IVC SCH (19:30)
[2021-10-19 19:32] LABS: Bacteria,Urine Few per hpf (None-Few); Bilirubin,Urine Negative (Negative); Blood,Urine Small (Negative); Clarity,Urine Clear (Clear); Color,Urine Light-Yellow (Yellow); Glucose,Urine (UA) Normal (Normal); Ketones,Urine Negative (Negative); Leukocyte Esterase,Urine Large (Negative); Mucus,Urine Few per lpf (None-Few); Nitrite,Urine Positive (Negative); PH,Urine 5.5 pH Units (5.0-8.0); Protein,Urine Trace mg/dL (Neg-Trace); Squamous Epithelial Cell,Urine Few per hpf (None-Few); Urobilinogen,Urine Normal (Normal); WBC,Urine TNTC per hpf (0-3)
[2021-10-19] MEDS ORDERED: Ondansetron 4 MG/2 ML VIAL IVP PRN (20:46)
[2021-10-19] MEDS ORDERED: Melatonin 3 MG TABLET PO PRN (20:46)
[2021-10-19] MEDS ORDERED: Naloxone 0.4 MG/ML INJ IVP PRN (20:46)
[2021-10-19] MEDS ORDERED: Dextrose Gel 15 GM/37.5 ML TUBE PO PRN ×2 (20:55)
[2021-10-19] MEDS ORDERED: *HR* Dextrose 50 % in Water (Syg) 50 ML SYRINGE IVP PRN (20:55)
[2021-10-19] MEDS ORDERED: D5% in Water 1,000 ML IVC PRN (20:55)
[2021-10-19] MEDS ORDERED: D5% in 0.45% NACL 1,000 ML IVC SCH (21:00)
[2021-10-19] MEDS: cefTRIAXone 1,000 MG in 0.9 % Sodium Chloride Mini Bag 100 ML IVPB SCH (21:47)
[2021-10-19] MEDS ORDERED: 0.9 % Sodium Chloride 500 ML ONE ×2 (22:25→23:19)
[2021-10-20] MEDS ORDERED: 0.9 % Sodium Chloride 1,000 ML IVC ONE (01:49)
[2021-10-20] MEDS ORDERED: 0.9 % Sodium Chloride 1,000 ML ONE (03:22)
[2021-10-20 03:52] LABS: Hematocrit 33.3 % (37.5-50.1); Mean Corpuscular HGB Conc 30.3 g/dL (31.6-35.5); Mean Corpuscular Hemoglobin 27.7 pg (28.0-33.3); Mean Corpuscular Volume 91.2 fL (83.0-100.0); Mean Platelet Volume 9.7 fL (9.4-12.4); Platelet Count 200 K/mcL (140-400); Red Blood Count 3.65 M/mcL (4.19-5.50); Red Cell Distribution Width 15.6 % (11.5-14.5); White Blood Count 7.8 K/mcL (4.3-11.1)
[2021-10-20 03:57] LABS: Hemoglobin 10.1 g/dL (12.9-16.9)
[2021-10-20 04:05] LABS: BUN/Creatinine Ratio 42 (6-26); Blood Urea Nitrogen 48 mg/dL (8-23); Carbon Dioxide 25 mEq/L (23-29); Chloride 103 mEq/L (98-107); Glucose 125 mg/dL (70-105); Osmolality,Calculated 296 (280-300); Potassium 3.7 mEq/L (3.5-5.1); Sodium 136 mEq/L (136-145); eGFR For African Americans > 60 (> 60); eGFR For Non-African Americans > 60 (> 60)
[2021-10-20 04:12] LABS: Alanine Aminotransferase 6 Units/L (7-52); Albumin 2.5 g/dL (3.5-5.7); Alkaline Phosphatase 34 Units/L (34-104); Aspartate Amino Transferase 12 Units/L (13-39); Bilirubin,Total 0.3 mg/dL (0.3-1.0); Globulin 2.6 g/dL (2.4-3.5); Total Protein 5.1 g/dL (6.4-8.9)
[2021-10-20] MEDS ORDERED: Albumin 25% 25gram/100mL 25 GM/100 ML IV.SOLN IVPB ONE (04:25)
[2021-10-20] MEDS ORDERED: Magnesium Sulfate 1 GM/102 ML PIGGYBACK IVPB ONE (07:33)
[2021-10-20] MEDS ORDERED: Norepinephrine 4 MG/254 ML IV.SOLN IVC SCH (07:45)
[2021-10-20] MEDS: Azithromycin 500 MG in 0.9 % Sodium Chloride 250 ML IVPB SCH (09:11)
[2021-10-20] MEDS: cefTRIAXone 1,000 MG in 0.9 % Sodium Chloride Mini Bag 100 ML IVPB SCH (09:11)
[2021-10-20] MEDS: Aspirin Enteric Coated 81 MG Tablet PO SCH (09:30)
[2021-10-20] MEDS: lisinopriL 20 MG TABLET PO SCH (09:30)
[2021-10-21] MEDS: lisinopriL 20 MG TABLET PO SCH (07:44)
[2021-10-21] MEDS: cefTRIAXone 1,000 MG in 0.9 % Sodium Chloride Mini Bag 100 ML IVPB SCH (07:45)
[2021-10-21] MEDS: Azithromycin 500 MG in 0.9 % Sodium Chloride 250 ML IVPB SCH (07:46)
[2021-10-21] MEDS: Aspirin Enteric Coated 81 MG Tablet PO SCH (07:46)
[2021-10-21] MEDS ORDERED: *HR* Dextrose 50 % in Water (Syg) 50 ML SYRINGE IVP PRN (09:57)
[2021-10-21] MEDS ORDERED: Naloxone 0.4 MG/ML INJ IVP PRN (09:57)
[2021-10-21] MEDS ORDERED: D5% in Water 1,000 ML IVC PRN (09:57)
[2021-10-21] MEDS ORDERED: Ondansetron 4 MG/2 ML VIAL IVP PRN (09:57)
[2021-10-21] MEDS ORDERED: Dextrose Gel 15 GM/37.5 ML TUBE PO PRN ×2 (09:57)
[2021-10-21] MEDS ORDERED: Melatonin 3 MG TABLET PO PRN (09:57)
[2021-10-21 10:04] LABS: Basophils % 0.5 %; Eosinophils # 0.1 K/mcL (0.0-0.6); Eosinophils % 1.7 %; Hematocrit 33.8 % (37.5-50.1); Hemoglobin 10.5 g/dL (12.9-16.9); Immature Granulocytes % 1.2 % (0-4); Lymphocytes # 1.2 K/mcL (0.6-4.6); Lymphocytes % 19.5 %; Mean Corpuscular HGB Conc 31.1 g/dL (31.6-35.5); Mean Corpuscular Hemoglobin 27.9 pg (28.0-33.3); Mean Corpuscular Volume 89.7 fL (83.0-100.0); Mean Platelet Volume 9.1 fL (9.4-12.4); Monocytes # 0.4 K/mcL (0.0-1.3); Monocytes % 7.3 %; Neutrophils # 4.2 K/mcL (1.6-8.9); Platelet Count 213 K/mcL (140-400); Red Blood Count 3.77 M/mcL (4.19-5.50); Red Cell Distribution Width 15.5 % (11.5-14.5); Segmented Neutrophils % 69.8 %; White Blood Count 6.1 K/mcL (4.3-11.1)
[2021-10-21 10:22] LABS: BUN/Creatinine Ratio 30 (6-26); Blood Urea Nitrogen 24 mg/dL (8-23); Calcium 8.2 mg/dL (8.6-10.3); Carbon Dioxide 27 mEq/L (23-29); Chloride 101 mEq/L (98-107); Glucose 82 mg/dL (70-105); Osmolality,Calculated 285 (280-300); Potassium 3.7 mEq/L (3.5-5.1); Sodium 136 mEq/L (136-145); eGFR For African Americans > 60 (> 60); eGFR For Non-African Americans > 60 (> 60)
[2021-10-21] MEDS: *HR* Heparin 5,000 UNIT/ML VIAL SQ SCH ×2 (14:47→20:12)
[2021-10-21 16:11] LABS: Hematocrit 31.9 % (37.5-50.1); Hemoglobin 9.7 g/dL (12.9-16.9)
[2021-10-21 22:37] LABS: Hematocrit 33.8 % (37.5-50.1); Hemoglobin 10.1 g/dL (12.9-16.9)
[2021-10-22] MEDS: *HR* Heparin 5,000 UNIT/ML VIAL SQ SCH ×2 (06:01→12:58)
[2021-10-22] MEDS ORDERED: Aspirin Enteric Coated 81 MG Tablet PO SCH (09:00)
[2021-10-22 16:14] VITALS: BP 128/84; PULSE 61; TEMP 97.6; O2SAT 96
[2021-10-23] MEDS ORDERED: Cyanocobalamin (B-12) 1,000 MCG TABLET PO SCH (09:00)
[2021-10-23] MEDS ORDERED: Cholecalciferol (D-3) 1,000 UNIT (25MCG) TABLET PO SCH (09:00)
== END 2021-10-22 17:10 | disposition hospice, home (50) | DRG 871 ==
LOC: EMEROOARM 15:14 → 3BNU 15:14 → 2NENU 20:09 → SUATTDRO 20:46 → 2NENU 21:11 → 2NNU 10-20 06:33 → 2ANU 10-22 11:48
PROVIDERS: ADMIT Student in an Organized Health Care Education/Training Program; ATTEND Internal Medicine